=== PATIENT | female | born 1945 | race Caucasian/White ===

== ENCOUNTER 2019-09-27 15:30 | Inpatient (IN) | payer MEDICARE, OTHER ==
[~2019-09-27] VITALS: Ht 160 cm; Wt 69.9 kg
[~2019-09-27 15:30] MED LIST: BACL20TA PO; CELE200C PO; HYDR1TAB10 PO; LISI40TA PO; ONDA8TAB12 PO; PRED-220 PO; RALO60TA PO; TRAM50TA PO; VERA240C2 PO; citracal PO; fish oil PO; vitamin d PO
[2019-09-27] MEDS ORDERED: IV NORMAL SALINE 1,000ML 1,000 ML IV SCH (15:47)
--- NOTE | 2019-09-27 15:56 | PHYS DOC ---
Past History Past Medical History: Hypertension, Other Additional Past Medical Histor: MS; osteoporosis Past Surgical History: No Surgical History Alcohol Use: None Drug Use: None Adult General Chief Complaint Chief Complaint: WEAKNESS/GENERALIZED HPI HPI Patient is a 73-year-old female who presents with complaint of generalized weakness and bilateral leg pain. Patient states that she has history of MS and last saw her neurologist about 2 weeks ago. She states that at that time he had prescribed a steroid and states that steroids have significantly improved sy mptoms. She states that she finished a steroid about a week ago and has been progressively having worsening of symptoms for since. She denies any chest pain or shortness of breath. Her main complaint is just generalized weakness.[] Review of Systems Review of Systems Constitutional: Denies fever or chills [] Respiratory: Denies cough or shortness of breath [] Cardiovascular: No additional information not addressed in HPI [] GI: Denies abdominal pain, nausea, vomiting or diarrhea [] Integument: Denies rash or skin lesions [] Neurologic: Denies headache. Complains of generalized weakness [] All other systems were reviewed and found to be within normal limits, except as documented in this note. Current Medications Current Medications Current Medications Medications (Trade) Dose Ordered Sig/Khushboo Start Time Stop Time Status Last Admin Dose Admin Sodium Chloride 1,000 ml @ 1,000 mls/hr Q1H 09/27/19 15:47 09/27/19 16:46 Allergies Allergies Allergies Coded Allergies Type Severity Reaction Last Updated Verified No Known Drug Allergies 09/27/19 No Physical Exam Physical Exam Constitutional: Well developed, well nourished, no acute distress, non-toxic appearance. [] HENT: Normocephalic, atraumatic, bilateral external ears normal, oropharynx moist, no oral exudates, nose normal. [] Eyes: PERRLA, EOMI, conjunctiva normal, no discharge. [] Neck: Normal range of motion, no tenderness, supple, no stridor. [] Cardiovascular: Regular rate and rhythm[] Lungs & Thorax: Bilateral breath sounds clear to auscultation [] Abdomen: Bowel sounds normal, soft, no tenderness. [] Skin: Warm, dry, no erythema, no rash. [] Extremities: No tenderness, no cyanosis, no clubbing, ROM intact. [] Neurologic: Alert and oriented X 3, no focal deficits noted. [] Current Patient Data Vital Signs Vital Signs Date Time Temp Pulse Resp B/P (MAP) Pulse Ox O2 Delivery O2 Flow Rate FiO2 09/27/19 15:33 98.5 93 11 151/90 (110) 93 Room Air EKG EKG [] Radiology/Procedures Radiology/Procedures [] Course & Med Decision Making Course & Med Decision Making Pertinent Labs and Imaging studies reviewed. (See chart for details) [] Dragon Disclaimer Dragon Disclaimer This electronic medical record was generated, in whole or in part, using a voice recognition dictation system. Departure Departure: Impression: Primary Impression: Exacerbation of multiple sclerosis Disposition: ADMITTED INPATIENT Admitting Physician: Neela Foley Condition: IMPROVED Referrals: PCP,UNKNOWN (PCP) DARRIUS HUNTER Jr. DO Sep 27, 2019 15:56
[2019-09-27 16:40] LABS: BASO # 0.1 x10^3/uL (0.0-0.2); BASO % 1 % (0-3); EOS # 0.1 x10^3/uL (0.0-0.7); EOS % 1 % (0-3); HEMOGLOBIN 13.9 g/dL (12.0-15.5); LYMPH # 1.2 x10^3/uL (1.0-4.8); LYMPH % 19 % (24-48); MEAN CORPUSCULAR HEMOGLOBIN 30 pg (25-35); MEAN CORPUSCULAR HGB CONC 32 g/dL (31-37); MEAN CORPUSCULAR VOLUME 91 fL (79-100); MONO # 0.5 x10^3/uL (0.0-1.1); MONO % 8 % (0-9); NEUT # 4.4 x10^3uL (1.8-7.7); NEUT % 70 % (31-73); PLATELET COUNT 287 x10^3/uL (140-400); RED BLOOD COUNT 4.72 x10^6/uL (3.50-5.40); WHITE BLOOD COUNT 6.2 x10^3/uL (4.0-11.0)
[2019-09-27 17:02] LABS: COLOR,URINE YELLOW
[2019-09-27 17:03] LABS: AMORPHOUS SEDIMENT,UR PRESENT /HPF; BACTERIA,URINE 0 /HPF (0-FEW); BILIRUBIN,URINE NEG (NEG); CLARITY,URINE CLOUDY; GLUCOSE,URINE NEG (NEG); NITRITE,URINE NEG (NEG); RBC,URINE OCC /HPF (0-2); SQUAMOUS EPITHELIAL CELL,UR OCC /LPF; UROBILINOGEN,URINE 0.2 mg/dL (0.2 mg/dL); WBC,URINE OCC /HPF (0-4)
[2019-09-27 17:18] LABS: CALCIUM 8.7 mg/dL (8.5-10.1); CREATININE 0.6 mg/dL (0.6-1.0); DIRECT BILIRUBIN 0.1 mg/dL (0.0-0.2); GFR 98.5; MAGNESIUM 1.7 mg/dL (1.8-2.4); POTASSIUM 3.9 mmol/L (3.5-5.1); TOTAL BILIRUBIN 0.3 mg/dL (0.2-1.0)
[2019-09-27] MEDS ORDERED: MORPHINE SULFATE 2 MG/ML DISP.SYRIN. IV PRN (18:30)
[2019-09-27] MEDS ORDERED: methylPREDNISolone SOD SUCC PF 125 MG/2 ML VIAL. IV ONE (18:30)
[2019-09-27] MEDS ORDERED: ONDANSETRON PF 4 MG/2 ML VIAL. IV PRN (18:30)
[2019-09-27] MEDS ORDERED: BACLOFEN 20 MG TABLET PO STA (18:57)
[2019-09-27 21:58] VITALS: BP 135/79
[2019-09-27 23:17] VITALS: BP 143/80
[2019-09-28 06:09] LABS: CALCIUM 8.6 mg/dL (8.5-10.1); CREATININE 0.7 mg/dL (0.6-1.0); GFR 82.5; POTASSIUM 4.1 mmol/L (3.5-5.1)
[2019-09-28 06:40] VITALS: BP 161/76
[2019-09-28 06:51] LABS: BASO % 0 % (0-3); EOS % 0 % (0-3); HEMATOCRIT 40.6 % (36.0-47.0); HEMOGLOBIN 13.2 g/dL (12.0-15.5); LYMPH # 0.6 x10^3/uL (1.0-4.8); LYMPH % 12 % (24-48); MEAN CORPUSCULAR HEMOGLOBIN 29 pg (25-35); MEAN CORPUSCULAR HGB CONC 33 g/dL (31-37); MEAN CORPUSCULAR VOLUME 90 fL (79-100); MONO # 0.1 x10^3/uL (0.0-1.1); MONO % 1 % (0-9); NEUT # 4.6 x10^3uL (1.8-7.7); NEUT % 87 % (31-73); PLATELET COUNT 265 x10^3/uL (140-400); RED BLOOD COUNT 4.51 x10^6/uL (3.50-5.40); WHITE BLOOD COUNT 5.3 x10^3/uL (4.0-11.0)
[2019-09-28] MEDS: RALOXIFENE 60 MG TABLET. PO SCH (09:00)
[2019-09-28] MEDS: predniSONE 10 MG TABLET PO SCH (09:15)
[2019-09-28] MEDS: OMEGA-3 FATTY ACIDS/FISH OIL 1,000 MG CAPSULE. PO SCH (09:15)
[2019-09-28] MEDS: CHOLECALCIFEROL (VITAMIN D3) 1,000 UNIT TABLET PO SCH (09:15)
[2019-09-28] MEDS: VERAPAMIL SR 120 MG TABLET.ER. PO SCH (09:16)
[2019-09-28] MEDS: BACLOFEN 20 MG TABLET PO SCH ×4 (09:16→21:30)
[2019-09-28] MEDS: LISINOPRIL 20 MG TABLET PO SCH (09:16)
[2019-09-28] MEDS: CELECOXIB 100 MG CAPSULE PO SCH (09:16)
[2019-09-28] MEDS: traMADol 50 MG TABLET PO PRN ×2 (09:17→18:30)
[2019-09-28] MEDS: CALCIUM CARBONATE 500 MG TABLET PO SCH (09:24)
[2019-09-28 11:00] VITALS: BP 151/82
[2019-09-28 15:00] VITALS: BP 158/78
--- NOTE | 2019-09-28 15:41 | HP ---
ADMIT DATE: 09/27/2019 HISTORY OF PRESENT ILLNESS: The patient is a 73-year-old female patient who came to the Emergency Room complaining of generalized weakness and bilateral leg pain. She apparently has had multiple sclerosis for more than 25 years and follows, so she saw her neurologist about 2 weeks ago and was prescribed a tapering course of steroids that has significantly improved her symptoms. She stated that she finished steroid about a week ago, has been progressively having worsening of symptoms, she is now unable to walk, unable to control her urine. Her weakness is actually worse in her right side. She denied any chest pain or shortness of breath. She was admitted to consult the neurologist. PAST MEDICAL HISTORY: Significant for hypertension, hypothyroidism, osteoporosis, osteoarthritis. PAST SURGICAL HISTORY: Significant for vertebroplasty x 2. ALLERGIES: She has no known drug allergies. MEDICATIONS: She is currently on baclofen 20 mg 4 times a day, verapamil 240 mg once a day, lisinopril 40 mg daily, Celebrex 200 mg 2 capsules once a day, tramadol 100 mg as needed every 6 hours, prednisone 10 mg daily, raloxifene for Evista 60 mg once a day, Citracal 1 tablet daily, omega-3 fatty acid 1 capsule once a day and vitamin D 5000 international units once a day. FAMILY HISTORY: She has one sister who has morbid obesity, treated with gastric bypass surgery. One brother, younger and has diabetes. Her father at age of 74 because of myocardial infarction and complication of diabetes. Her mother at age of 86 because of Marii's granulomatosis. SOCIAL HISTORY: She is , has 2 daughters. She never smoked, does not drink alcohol or use any recreational drugs. She worked at [employer] for almost 38 years. REVIEW OF SYSTEMS: The patient denied any blurring of vision, cataract, glaucoma or macular degeneration. Denied any earache, tinnitus or sensorineural deafness. Denied any nosebleeds, stuffy nose or postnasal drip. Denied any sore throat, sore tongue, toothache, hoarseness of voice or difficulty swallowing. Denied any nausea, vomiting, diarrhea or constipation. Denied any hematemesis, melena or hematochezia. Did complain of dysuria, but denied any frequency or hematuria. Denied any chest pain or shortness of breath, cough, phlegm or hemoptysis. PHYSICAL EXAMINATION: GENERAL: On arrival to the Emergency Room, she looked well and was clearly in no apparent respiratory distress. No pallor, jaundice, cyanosis or thyromegaly. No jugular venous distention, but bilateral lower limb edema. VITAL SIGNS: Her heart rate was 79, blood pressure was 161/76, temperature was 98.2, respiratory rate was 18 and oxygen saturation was 93%. HEAD, EYES, EARS, NOSE AND THROAT: Shows normocephalic, atraumatic. NECK: Supple. CARDIAC: Normal first and second heart sounds with no gallop or murmur. CHEST: Clear to auscultation. No crepitation or rhonchi. ABDOMEN: Distended, soft, nontender. NEUROLOGIC: She is awake, alert, responding appropriately. All cranial nerves intact. She moves her upper extremities much more readily than her lower extremities. She does have weakness, more on the right side and she has what seems to be foot drops in both sides EXTREMITIES: Examination of the lower extremities showed no clubbing or cyanosis, but marked bilateral lower limb edema. LABORATORY DATA: Her lab work on arrival showed a white cell count of 6200, hemoglobin 14, hematocrit 43, MCV 91, and platelet count 287,000. Serum sodium was 142, potassium 3.9, chloride 106, bicarbonate 31, anion gap of 5, BUN 16, creatinine 0.6, estimated GFR was 98 mL per minute. Her glucose was 93, calcium was 8.7, magnesium was 1.7. Her total bilirubin, AST, ALT, alkaline phosphatase were normal. Total protein was 6, albumin 3. Her urinalysis essentially unremarkable. In particular, the urine was negative for nitrite, leukocyte esterase, no rbc's, no wbc's, and no bacteria. ASSESSMENT AND PLAN: In summary, this is a 73-year-old who was admitted with multiple sclerosis exacerbation. Other medical problems include hypertension, osteoporosis. Plan is to continue with all her current medication. Consult Dr. Pittman. Her legs are markedly swollen and given her poor mobility, obviously DVT is clinically likely. I will arrange for her to have venous Doppler ultrasound to exclude that possibility. GILBERTO RENTERIA MD DR: MORENA/rhiannon JOB#: [id number] / [id number]
[2019-09-28] MEDS: ENOXAPARIN 40 MG/0.4 ML SYRINGE. SQ SCH (16:58)
--- NOTE | 2019-09-28 17:54 | RAD ---
EXAM: Bilateral lower extremity venous Doppler. HISTORY: Bilateral lower extremity pain/swelling. COMPARISON: None. FINDINGS: Grayscale and Doppler analysis of the both lower extremity deep venous systems was performed with graded compression and augmentation. The common femoral, greater saphenous, superficial femoral, popliteal and calf veins were assessed. There is no evidence of deep venous thrombosis. Subcutaneous edema is noted distally bilaterally. IMPRESSION: 1. No evidence of deep venous thrombosis. Electronically signed by: Liana Toth MD (09/28/2019 5:51 PM) [id number]
[2019-09-28 18:44] VITALS: BP 144/80
[2019-09-28] MEDS ORDERED: LEVO50TA5 PO (19:02)
--- NOTE | 2019-09-28 21:07 | PN ---
DATE: 09/28/2019 SUBJECTIVE: The patient is resting, slightly propped up in bed, in no apparent distress. She continued to complain of weakness and inability to walk. According to her, she was able to get out of the bed and walk with a walker without difficulty and since she stopped her steroids, her weakness has just progressed. PHYSICAL EXAMINATION: GENERAL: When I saw her today, she looked pale, but no jaundice, cyanosis or thyromegaly. No jugular venous distention. No limb edema. VITAL SIGNS: Her heart rate was 121, blood pressure was 151/82, temperature was 98.1, respiratory rate 20, and oxygen saturation was 93%. HEAD, EYES, EARS, NOSE AND THROAT: Showed normocephalic, atraumatic. NECK: Supple. HEART: Normal first and second heart sounds. No gallop or murmur. CHEST: Clear to auscultation. No crepitation or rhonchi. ABDOMEN: Distended, soft, nontender. NEUROLOGIC: She is awake, alert, responding appropriately. All cranial nerves intact. She moves upper extremities without difficulty. She has marked weakness of both lower extremities, more so on the right than left. ASSESSMENT: Multiple sclerosis exacerbation, hypothyroidism, hypertension, osteoporosis. PLAN: To await the Neurology consult. I would start her on Lovenox for DVT prophylaxis, we will arrange for her to have given markedly swollen lower extremities and her poor mobility. I will also order venous Doppler ultrasound. GILBERTO RENTERIA MD DR: MORENA/rhiannon JOB#: [id number] / [id number]
[2019-09-29 05:29] VITALS: BP 143/82
[2019-09-29 06:56] LABS: CALCIUM 8.3 mg/dL (8.5-10.1); CREATININE 0.6 mg/dL (0.6-1.0); GFR 98.5; MAGNESIUM 1.9 mg/dL (1.8-2.4)
[2019-09-29] MEDS: ENOXAPARIN 40 MG/0.4 ML SYRINGE. SQ SCH (08:08)
[2019-09-29] MEDS: RALOXIFENE 60 MG TABLET. PO SCH (08:08)
[2019-09-29] MEDS: OMEGA-3 FATTY ACIDS/FISH OIL 1,000 MG CAPSULE. PO SCH (08:08)
[2019-09-29] MEDS: LISINOPRIL 20 MG TABLET PO SCH (08:08)
[2019-09-29] MEDS: VERAPAMIL SR 120 MG TABLET.ER. PO SCH (08:09)
[2019-09-29] MEDS: CELECOXIB 100 MG CAPSULE PO SCH (08:09)
[2019-09-29] MEDS: CALCIUM CARBONATE 500 MG TABLET PO SCH (08:09)
[2019-09-29] MEDS: BACLOFEN 20 MG TABLET PO SCH ×4 (08:09→20:25)
[2019-09-29] MEDS: traMADol 50 MG TABLET PO PRN (08:09)
[2019-09-29] MEDS: predniSONE 10 MG TABLET PO SCH (08:10)
[2019-09-29] MEDS: CHOLECALCIFEROL (VITAMIN D3) 1,000 UNIT TABLET PO SCH (08:11)
--- NOTE | 2019-09-29 12:54 | CONS ---
DATE OF CONSULTATION: 09/28/2019 REFERRING PHYSICIAN: Dr. Foley. REASON FOR CONSULTATION: Generalized weakness and low back pain. 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 I have seen the patient on a regular basis and she complains of generalized weakness and possible MS flareup. She was started on a tapering dose of prednisone several weeks ago. The last dose was approximately 7-9 days ago. The patient reported some improvement of her weakness. However, a week later, she started having generalized weakness and worsening of her chronic lower back pain. She denies any head injuries or fall. The patient states she still has intermittent urinary incontinence. She denies chest pain, shortness of breath or palpitation, dysarthria, dysphagia, or vertigo. PAST MEDICAL HISTORY: Significant for multiple sclerosis as described above, hypertension, hypothyroidism, osteoporosis and osteoarthritis. PAST SURGICAL HISTORY: Significant for vertebroplasty times 2. CURRENT HOME MEDICATIONS: Baclofen 20 mg 4 times daily, verapamil 240 mg daily, Evista 60 mg once daily, prednisone 10 mg daily, lisinopril 40 mg daily, Celebrex 200 mg 2 capsules daily and tramadol 100 mg p.r.n., vitamin D 5000 units daily and fish oil 1 tablet daily. ALLERGIES: No known drug allergies. REVIEW OF SYSTEMS: A 10-point review of systems was performed as mentioned above in history of present illness. PHYSICAL EXAMINATION: GENERAL: Well-developed, well-nourished female, not in acute distress. She weighs 69.9 kilos. VITAL SIGNS: Blood pressure 158/78, respiratory rate 18, pulse is 73, temperature 98.6, oxygen saturation 93% on room air. HEENT: Normocephalic, atraumatic, otherwise unremarkable. NECK: Supple. Negative for carotid bruit, lymphadenopathy or thyromegaly. LUNGS: Clear to A and P. CARDIOVASCULAR: Regular rate and rhythm, normal S1, S2. There is no S3, S4 or murmur. ABDOMEN: Soft. Bowel sounds positive. EXTREMITIES: Negative for cyanosis, clubbing. Positive for mild pitting edema, more prominent on the right side, probably due to morbidities secondary to MS. NEUROLOGICAL EXAM: Mental status: The patient is alert and oriented times 3. Speech is fluent. There is no language dysfunction. Memory, judgment, and abstracting thinking are normal. The patient denies hallucination or delusion. Cranial nerves: Visual wall are full. The pupils are reactive to light and accommodation. The extraocular movements are intact. There is no nystagmus. There is no facial motor or sensory deficit. Hearing is intact bilaterally. The palate is elevated symmetrically. Sternocleidomastoid muscles are powerful bilaterally. The patient shrugs her shoulders symmetrically, protrudes her tongue in the midline without fasciculation or atrophy. Motor: No focal muscle bulk was seen. The tone is normal. The strength is 4/5 in the upper extremities and 3/5 in the right lower extremity and 4/5 in the left lower extremity. Deep tendon reflexes were symmetric and hypoactive. Gait not tested at this time. The patient uses a walker for ambulation, but she felt very weak today. DIAGNOSTIC DATA: Venous Doppler ultrasound of the lower extremities revealed no evidence of DVTs. LABORATORY DATA: CBC revealed white blood cells of 5.3 thousand, hemoglobin 13.2, hematocrit 40.6, platelet count 265,000. Chemistry revealed sodium of 141, potassium 4.1, chloride 106, CO2 of 26, BUN 19, creatinine 0.7, glucose 165 and calcium 8.6. Urinalysis negative for urinary tract infections. IMPRESSION: 1. Generalized weakness, more prominent in the lower extremities, unchanged from previous examination. 2. Primary progressive multiple sclerosis resulted in severe balance and difficulty to walk without assistance, urinary incontinence. 3. Multiple medical problems include chronic low back pain due to previous vertebral fracture required vertebroplasty, hypertension, osteoporosis and osteoarthritis, hypothyroidism. RECOMMENDATIONS: 1. We will continue with current management initiated by Dr. Foley. 2. Check a TSH. 3. Physical therapy evaluation. 4. Continue with current home medications. I do not think this patient needs another course of steroids as the patient has been finishing a 2 course of tapering dose of prednisone. M Reji ALBARRAN MD DR: ROYA/rhiannon JOB#: [id number] / [id number]
--- NOTE | 2019-09-29 13:03 | PN ---
DATE: SUBJECTIVE: The patient denies any new medical or neurological complaints; however, she stated she feels better and stronger today. OBJECTIVE: GENERAL: Well-developed, well-nourished female, not in acute distress. VITAL SIGNS: Blood pressure 144/80, respiratory rate 20, pulse is 68, temperature 98.9, oxygen saturation 96% on room air. HEENT: Normocephalic, atraumatic, otherwise unremarkable. NECK: Supple. Negative for carotid bruit, lymphadenopathy or thyromegaly. LUNGS: Clear to A and P. CARDIOVASCULAR: Regular rhythm, normal S1, S2. There is no S3, S4 or murmur. ABDOMEN: Soft. Bowel sounds positive. EXTREMITIES: Negative for cyanosis or clubbing, but positive for mild pitting edema, more prominent on the left lower extremity. LABORATORY DATA: Chemistry revealed sodium of 142, potassium 4, chloride 107, CO2 of 26, BUN 21, creatinine 0.6, glucose 88, calcium 8.3, TSH is high at 3.59. IMPRESSION: 1. Generalized weakness with multiple medical problems including a primary progressive multiple sclerosis, may have elevated TSH and hypothyroidism may have contributed to the current symptoms of weakness. 2. Multiple medical problems include hypertension, osteoarthritis and osteoporosis. RECOMMENDATIONS: The patient may benefit from adding levothyroxine and we will start physical therapy evaluation tomorrow. M Reji ALBARRAN MD DR: ROYA/rhiannon JOB#: [id number] / [id number]
--- NOTE | 2019-09-29 15:20 | PN ---
DATE: 09/29/2019 SUBJECTIVE: The patient is sitting comfortably in her chair, in no apparent distress. She is feeling slightly better today. She has been up and about with a walker with standby assist. She continues to be concerned about her swollen leg, although we did do venous Doppler ultrasound yesterday and showed that there is no evidence of deep vein thrombosis, subcutaneous edema is more noted distally bilaterally. PHYSICAL EXAMINATION: GENERAL: When I examined her today, she looked well and was clearly in no apparent respiratory distress. No pallor, jaundice, cyanosis or thyromegaly. No jugular venous distention or ____ edema. VITAL SIGNS: Her heart rate was 55, blood pressure 143/82, temperature was 97.9, respiratory rate was 18 and oxygen saturation was 95%. HEAD, EYES, EARS, NOSE AND THROAT: Showed normocephalic, atraumatic. NECK: Supple. HEART: Showed normal first and second heart sounds. No gallop or murmur. CHEST: Clear to auscultation. No crepitation or rhonchi. ABDOMEN: Distended, soft, nontender. NEUROLOGIC: She was awake, alert, responding appropriately. All cranial nerves intact. She moves extremities without difficulty. She ambulates with a walker. EXTREMITIES: Both lower extremities showed some mild bilateral lower limb edema and skin dryness, but there is no clubbing or cyanosis. LABORATORY DATA: Her most recent lab work showed that her TSH was slightly elevated. Her serum albumin was 3 g/dL. ASSESSMENT: 1. Multiple sclerosis exacerbation. 2. Hypothyroidism. 3. Hypertension. 4. Osteoporosis with multiple compression fractures, status post vertebroplasty. PLAN: Obviously to continue with physical and occupational therapy. We will be discharge to swing bed tomorrow. I will also check her T3, T4, free T4, and decide on further management accordingly. GILBERTO RENTERIA MD DR: MORENA/rhiannon JOB#: [id number] / [id number]
[2019-09-29 20:00] VITALS: BP 146/78
[2019-09-30 05:28] VITALS: BP 153/78
[2019-09-30 06:15] LABS: ALBUMIN 2.9 g/dL (3.4-5.0); CALCIUM 8.7 mg/dL (8.5-10.1); CREATININE 0.6 mg/dL (0.6-1.0); GFR 98.5; POTASSIUM 3.7 mmol/L (3.5-5.1); TOTAL BILIRUBIN 0.3 mg/dL (0.2-1.0); TOTAL PROTEIN 5.9 g/dL (6.4-8.2)
[2019-09-30] MEDS: CHOLECALCIFEROL (VITAMIN D3) 1,000 UNIT TABLET PO SCH (08:23)
[2019-09-30] MEDS: CALCIUM CARBONATE 500 MG TABLET PO SCH (08:23)
[2019-09-30] MEDS: predniSONE 10 MG TABLET PO SCH (08:24)
[2019-09-30] MEDS: LISINOPRIL 20 MG TABLET PO SCH (08:24)
[2019-09-30] MEDS: OMEGA-3 FATTY ACIDS/FISH OIL 1,000 MG CAPSULE. PO SCH (08:24)
[2019-09-30] MEDS: RALOXIFENE 60 MG TABLET. PO SCH (08:25)
[2019-09-30] MEDS: BACLOFEN 20 MG TABLET PO SCH ×2 (08:25→13:29)
[2019-09-30] MEDS: CELECOXIB 100 MG CAPSULE PO SCH (08:25)
[2019-09-30] MEDS: VERAPAMIL SR 120 MG TABLET.ER. PO SCH (08:26)
[2019-09-30] MEDS: ENOXAPARIN 40 MG/0.4 ML SYRINGE. SQ SCH (08:27)
[2019-09-30] MEDS ORDERED: CELECOXIB 100 MG CAPSULE PO SCH (09:00)
[2019-09-30 11:29] VITALS: BP 158/98
[2019-09-30] MEDS ORDERED: CALCIUM CARBONATE 500 MG TAB.CHEW PO PRN (13:45)
--- NOTE | 2019-09-30 20:41 | DS ---
DATE OF DISCHARGE: 09/30/2019 DISCHARGE-TRANSFER SUMMARY HOSPITAL COURSE: The patient is a 73-year-old female patient with longstanding history of multiple sclerosis, who was admitted with exacerbation of her multiple sclerosis. She was seen by Dr. Pittman and she finished 2-week course of tapering steroids and came complaining of marked weakness and difficulty walking and unable to control her urine. She was seen in consultation by Dr. Pittman, who did not recommend anymore steroids, but he recommended physical therapy and therefore, we will discharge her to swing bed to continue the process of rehabilitation. PHYSICAL EXAMINATION: GENERAL: When I saw her today, she looked well and was clearly in no apparent respiratory distress. No pallor, jaundice, cyanosis, or thyromegaly. No jugular venous distension. Mild bilateral lower limb edema. VITAL SIGNS: Her heart rate was 83, blood pressure was 158/98, temperature was 98.1, respiratory rate was 20, and oxygen saturation was 93% on room air. HEAD, EYES, EARS, NOSE AND THROAT: Showed normocephalic, atraumatic. NECK: Supple. HEART: Showed normal first and second heart sounds. No gallop or murmur. CHEST: Clear to auscultation. No crepitation or rhonchi. ABDOMEN: Distended, soft, nontender. NEUROLOGICAL: She was awake, alert, responding appropriately. All cranial nerves intact. She moves upper extremities to much good extent than lower extremities. She is able to walk with a walker. Her weakness is more on the ____. Her intake was 500, no output was recorded. LABORATORY DATA: Her lab work as of this morning showed a serum sodium of 144, potassium 3.7, chloride 107, bicarbonate 30, anion gap of 7, BUN 19, creatinine 0.6, estimated GFR was 98 mL per minute. Her glucose was 97, calcium was 8.7. Total bilirubin, AST, ALT, alkaline phosphatase were normal. Her total protein was 5.9, albumin was 2.9. Her white cell count was 5300, hemoglobin 13, hematocrit 40, MCV 90 and platelet count of 265,000. DISCHARGE MEDICATIONS: She was discharged to swing bed to continue on baclofen 20 mg 4 times a day, Celebrex 400 mg once a day, Citracal 1 tablet once a day, fish oil 1 capsule once a day, levothyroxine sodium 50 mcg once a day, lisinopril 40 mg daily, prednisone 10 mg daily, raloxifene (Evista) 60 mg once a day, tramadol 100 mg every 6 hours, verapamil 240 mg once a day, vitamin D 5000 international units once a day. FINAL DISCHARGE DIAGNOSES: Multiple sclerosis exacerbation. Other problems include hypertension, hypothyroidism, osteoporosis, osteoarthritis. GILBERTO RENTERIA MD DR: MORENA/rhiannon JOB#: [id number] / [id number]
[2019-10-01] MEDS ORDERED: CHOL500062 PO (03:07)
[2019-10-01] MEDS ORDERED: CALC500T31 PO (03:07)
[2019-10-01] MEDS ORDERED: OMEG-33 PO (03:07)
== END 2019-09-30 14:58 | disposition swing bed (61) | DRG 59 ==
LOC: ER 15:30 → 1 SOUTH 18:27
PROVIDERS: ADMIT Internal Medicine; ATTEND Internal Medicine
DX: G35 Multiple sclerosis (principal); E44.0 Moderate protein-calorie malnutrition; E03.9 Hypothyroidism, unspecified; G89.29 Other chronic pain; I10 Essential (primary) hypertension; M19.90 Unspecified osteoarthritis, unspecified site; M81.0 Age-related osteoporosis without current pathological fracture; N31.9 Neuromuscular dysfunction of bladder, unspecified; Z82.49 Family history of ischemic heart disease and other diseases of the circulatory system; Z83.3 Family history of diabetes mellitus; Z87.81 Personal history of (healed) traumatic fracture; Z79.899 Other long term (current) drug therapy; Z68.27 Body mass index [BMI] 27.0-27.9, adult
CPT/HCPCS: 36415; 80048; 80053; 80076; 81001; 82550; 83735; 84436; 84439; 84443; 84480; 85025; 93970; 96361; 96374; J1650; J2270; J2930; J7512; 97530; 97535; 99285-25; J7030

== ENCOUNTER 2019-09-30 15:07 | Inpatient (IN) | payer MEDICARE, OTHER ==
[~2019-09-30] VITALS: Ht 160 cm; Wt 64.1 kg
[~2019-09-30 15:07] MED LIST changes: +LEVO50TA5 PO
[2019-09-30 15:14] VITALS: BP 155/83
[2019-09-30] MEDS ORDERED: traMADol 50 MG TABLET PO SCH (15:30)
--- NOTE | 2019-09-30 15:58 | NUR ---
NURSING NOTE ADMIT PT ADMITTED [facility] FOR PT AND OT EVALUATION AND TREATMENT. SEE COMPLETED ASSESSMENT PER FLOW SHEET. NO BEHAVIORS NOTED THIS SHIFT. PAIN: PT DENIES PAIN BUT DOES HAVE CHRONIC PAIN OFF AND ON. PT HAS PRN PAIN MEDICATIONS IF NEEDED. RESPIRATORY: PT IS ON ROOM AIR. SKIN: PT HAS EDEMA/SWELLING TO BLE 2+ AND DRY FLAKY SKIN. ADL FUNCTIONAL STATUS: REQUIRES X2 ASSIST AND SIT TO STAND AT THIS TIME. EXTENSIVE ASSISTANCE WITH ALMOST ALL ADL'S AT THIS TIME. PT WAS WALKING WITH A WALKER AT HOME. PT/OT NOTIFIED OF ORDERS. DENISE SNIDER.
--- NOTE | 2019-09-30 16:37 | NUR ---
NURSING NOTE PT COMPLAINS OF LOWER ABDOMEN PRESSURE AND URINE FREQUENCY. DR RENTERIA NOTIFIED. REPEAT UA ORDER OBTAINED. DENISE SNIDER.
[2019-09-30] MEDS: BACLOFEN 20 MG TABLET PO SCH ×2 (16:46→20:51)
[2019-09-30 18:12] VITALS: BP 137/92
[2019-09-30 19:55] LABS: AMORPHOUS SEDIMENT,UR PRESENT /HPF; BACTERIA,URINE 0 /HPF (0-FEW); BILIRUBIN,URINE NEG (NEG); CLARITY,URINE CLOUDY; COLOR,URINE YELLOW; GLUCOSE,URINE 250 mg/dL (NEG); NITRITE,URINE NEG (NEG); RBC,URINE RARE /HPF (0-2); SQUAMOUS EPITHELIAL CELL,UR OCC /LPF; UROBILINOGEN,URINE 0.2 mg/dL (0.2 mg/dL); WBC,URINE RARE /HPF (0-4)
[2019-09-30] MEDS ORDERED: VERAPAMIL SR 120 MG TABLET.ER. PO SCH (21:00)
[2019-09-30] MEDS: traMADol 50 MG TABLET PO PRN (21:01)
--- NOTE | 2019-10-01 02:38 | NUR ---
Swing Bed Nursing Note Patient Handbook for [facility]ter given to patient. Nursing Problem: PT/OT strengthening, post MS flare up Cognitive/Behavioral: Pt alert and oriented x4. Pt pleasant and interactive with staff. Pain: Pt report pain to lower back, PRN Tramadol given as ordered Respiratory Status: Room Air, Clear Skin: Redness and edema to lower legs - Lower Ext US negative for DVT Bowel/Bladder Continence: Pt use bedside commode x2 assist and brief in place due to stress incontinence. ADL Functional Status: Requires x2 assist, with transfers. Pt has had to use sit to stand lift on previous shift. At this time pt requires extensive help with ADLs. Pt normally use a walker at home.
[2019-10-01] MEDS ORDERED: OMEG-33 PO (03:07)
[2019-10-01] MEDS ORDERED: CALC500T31 PO (03:07)
[2019-10-01] MEDS ORDERED: CHOL500062 PO (03:07)
[2019-10-01 05:14] VITALS: BP 127/80
[2019-10-01] MEDS: LEVOTHYROXINE 50 MCG TABLET PO SCH (06:00)
[2019-10-01] MEDS ORDERED: LEVOTHYROXINE 50 MCG TABLET PO SCH ×2 (06:00→07:30)
[2019-10-01] MEDS: BACLOFEN 20 MG TABLET PO SCH ×4 (08:22→20:42)
[2019-10-01] MEDS: LISINOPRIL 20 MG TABLET PO SCH (08:22)
[2019-10-01] MEDS: CALCIUM CARBONATE 500 MG TABLET PO SCH (08:22)
[2019-10-01] MEDS: OMEGA-3 FATTY ACIDS/FISH OIL 1,000 MG CAPSULE. PO SCH (08:22)
[2019-10-01] MEDS: CHOLECALCIFEROL (VITAMIN D3) 1,000 UNIT TABLET PO SCH (08:23)
[2019-10-01] MEDS: ENOXAPARIN 40 MG/0.4 ML SYRINGE. SQ SCH (08:23)
[2019-10-01] MEDS: predniSONE 10 MG TABLET PO SCH (08:23)
[2019-10-01] MEDS: CELECOXIB 100 MG CAPSULE PO SCH ×2 (08:23→20:42)
[2019-10-01] MEDS: RALOXIFENE 60 MG TABLET. PO SCH (08:25)
[2019-10-01] MEDS: VERAPAMIL SR 120 MG TABLET.ER. PO SCH (08:28)
[2019-10-01] MEDS ORDERED: NON FORMULARY ITEM (Lisinopril 1 TAB) PO SCH (09:00)
[2019-10-01] MEDS ORDERED: CELECOXIB 100 MG CAPSULE PO SCH (09:00)
[2019-10-01] MEDS ORDERED: FISH OIL PO SCH (09:00)
[2019-10-01] MEDS ORDERED: VERAPAMIL HCL PO SCH (09:00)
[2019-10-01] MEDS ORDERED: INTLU PO SCH (09:00)
[2019-10-01] MEDS ORDERED: CITRACAL PO SCH (09:00)
[2019-10-01] MEDS ORDERED: VERAPAMIL SR 120 MG TABLET.ER. PO SCH (09:00)
[2019-10-01] MEDS ORDERED: CELECOXIB PO SCH (09:00)
--- NOTE | 2019-10-01 14:42 | NUR ---
SWING BED DOCUMENTATION PATIENT HANDBOOK FOR [facility] GIVEN TO PATIENT. PT HERE FOR PT/OT STRENGTHENING POST MS FLARE UP ADMISSION. PT IS A&O X4. PT IS CALM, COOPERATIVE, AND COMPLIANT WITH ALL CARES. PT INTERACTED WELL WITH OTHER PATIENTS AT THE DINNING ROOM FOR MEALS. PT DENIES ANY PAIN THUS FAR BUT USES PRN TRAMADOL NEEDED FOR PAIN IN HER LEGS AND LOWER BACK. PT IS ON ROOM AIR AND LUNG SOUNDS ARE CLEAR. NO COUGH NOTED. PT HAS EDEMA AND REDNESS IN BILATERAL LOWER LEGS. PT EDUCATED ABOUT ELEVATING HER LEGS WHEN AT REST. PT IS X2 ASSIST TO BEDSIDE COMMODE WITH OCCASIONAL STRESS INCONTINENCE. PT REQUIRES X2 ASSIST WITH TRANSFERS OUT OF BED AND OUT OF CHAIR. PT IS ABLE TO STAND OKAY WITH HER SHOES ON AND IS A X1 ASSIST WHEN UP IN WHEELCHAIR TO BEDSIDE COMMODE. OTHERWISE, PT REQUIRES EXTENSIVE HELP WITH ADL'S. PT IS INDEPENDENT WHEN EATING HER MEALS. PT IS NOT ABLE TO WIPE HERSELF OR CLEAN UP AFTER USING THE RESTROOM. SHE IS NOT ABLE TO PUT HER OWN SHOES ON OR LIFT HER LEGS UP TO PUT ON BRIEF OR PANTS. WILL CONTINUE TO MONITOR. DENISE SNIDER.
[2019-10-01 18:30] VITALS: BP 150/92
--- NOTE | 2019-10-01 21:39 | NUR ---
wing Bed Nursing Note Patient Handbook for [facility] given to patient. Nursing Problem: PT/OT strengthening, post MS flare up Cognitive/Behavioral: Pt resting in bed on assessment, reports having a great visit with her daughter this evening. Pt alert and oriented x4. Pt pleasant and interactive with staff. Pain: Pt denies pain at this time. Respiratory Status: Room Air, Clear Skin: Redness and edema to lower legs - Lower Ext US negative for DVT Bowel/Bladder Continence: Pt use bedside commode x2 assist and brief in place due to stress incontinence. ADL Functional Status: Requires x2 assist, with transfers. Pt has had to use sit to stand lift on previous shift. At this time pt requires extensive help with ADLs. Pt normally use a walker at home.
[2019-10-02] MEDS: LEVOTHYROXINE 50 MCG TABLET PO SCH (05:33)
[2019-10-02 05:53] VITALS: BP 160/80
[2019-10-02] MEDS: ENOXAPARIN 40 MG/0.4 ML SYRINGE. SQ SCH (08:40)
[2019-10-02] MEDS: predniSONE 10 MG TABLET PO SCH (08:40)
[2019-10-02] MEDS: BACLOFEN 20 MG TABLET PO SCH ×4 (08:40→21:36)
[2019-10-02] MEDS: CALCIUM CARBONATE 500 MG TABLET PO SCH (08:40)
[2019-10-02] MEDS: VERAPAMIL SR 120 MG TABLET.ER. PO SCH (08:40)
[2019-10-02] MEDS: OMEGA-3 FATTY ACIDS/FISH OIL 1,000 MG CAPSULE. PO SCH (08:41)
[2019-10-02] MEDS: RALOXIFENE 60 MG TABLET. PO SCH (08:41)
[2019-10-02] MEDS: CELECOXIB 100 MG CAPSULE PO SCH ×2 (08:41→21:36)
[2019-10-02] MEDS: CHOLECALCIFEROL (VITAMIN D3) 1,000 UNIT TABLET PO SCH (08:41)
[2019-10-02] MEDS: LISINOPRIL 20 MG TABLET PO SCH (08:41)
--- NOTE | 2019-10-02 10:35 | NUR ---
Swing Bed Nursing Note Patient Handbook for Shelter given to patient. Nursing Problem: PT/OT strengthening, post MS flare up Cognitive/Behavioral: Pt resting in chair on assessment, reports feeling a bit stronger today. Pt alert and oriented x4. Pt pleasant and interactive with staff; compliant with medications and assessments. Pain: Pt denies pain at this time. Respiratory Status: Room Air, Clear Skin: Redness and edema to lower legs - Lower Ext US negative for DVT. No wounds noted. Bowel/Bladder Continence: Pt use bedside commode x2 assist and brief in place due to stress incontinence. ADL Functional Status: Requires x2 assist, with transfers. Pt has had to use sit to stand lift on previous shifts. At this time pt requires extensive help with ADLs. Pt normally use a walker at home.
[2019-10-02 18:05] VITALS: BP 149/93
[2019-10-02] MEDS ORDERED: CETIRIZINE HCL 10 MG TABLET PO PRN (21:00)
--- NOTE | 2019-10-03 04:04 | NUR ---
wing Bed Nursing Note Patient Handbook for Detention given to patient. Nursing Problem: PT/OT strengthening, post MS flare up Cognitive/Behavioral: Pt resting in bed on assessment, reports having a great visit with her daughter this evening. Pt alert and oriented x4. Pt pleasant and interactive with staff. Pain: Pt denies pain at this time. Respiratory Status: Room Air, Clear Skin: Redness and edema to lower legs - Lower Ext US negative for DVT Bowel/Bladder Continence: Pt use bedside commode x2 assist and brief in place due to stress incontinence. ADL Functional Status: Requires x2 assist, with transfers. Pt has had to use sit to stand lift on previous shift. At this time pt requires extensive help with ADLs. Pt normally uses a walker at home.
[2019-10-03] MEDS: LEVOTHYROXINE 50 MCG TABLET PO SCH (05:26)
[2019-10-03] MEDS: traMADol 50 MG TABLET PO PRN (05:28)
[2019-10-03 06:21] VITALS: BP 132/79
[2019-10-03 08:53] VITALS: BP 126/75
[2019-10-03] MEDS: VERAPAMIL SR 120 MG TABLET.ER. PO SCH (08:54)
[2019-10-03] MEDS: OMEGA-3 FATTY ACIDS/FISH OIL 1,000 MG CAPSULE. PO SCH (08:55)
[2019-10-03] MEDS: RALOXIFENE 60 MG TABLET. PO SCH (08:55)
[2019-10-03] MEDS: CHOLECALCIFEROL (VITAMIN D3) 1,000 UNIT TABLET PO SCH (08:55)
[2019-10-03] MEDS: predniSONE 10 MG TABLET PO SCH (08:56)
[2019-10-03] MEDS: LISINOPRIL 20 MG TABLET PO SCH (08:56)
[2019-10-03] MEDS: CELECOXIB 100 MG CAPSULE PO SCH ×2 (08:56→21:48)
[2019-10-03] MEDS: CALCIUM CARBONATE 500 MG TABLET PO SCH (08:57)
[2019-10-03] MEDS: ENOXAPARIN 40 MG/0.4 ML SYRINGE. SQ SCH (08:57)
[2019-10-03] MEDS: BACLOFEN 20 MG TABLET PO SCH ×4 (10:58→21:48)
[2019-10-03 17:00] VITALS: BP 136/82
--- NOTE | 2019-10-03 18:38 | NUR ---
Swing Bed Nursing Note Patient Handbook for Assisted given to patient. Nursing Problem: MS flare up/ PT/OT Eval and Treat Cognitive/Behavioral: Alert and Oriented x 4. Pain: None noted on this shift. Respiratory Status: Room Air Skin:intact Bowel/Bladder Continence: Wears depends for stress incontinence, uses bedside potty, 2x assist, uses sit to stand and gait belt. ADL Functional Status: Pt able to dress and feed self. Pt is continent of bowel and bladder. Pt is unable to ambulate at this time. Pt is in a wheel chair. Pt able to perform personal hygiene 2x assist.
[2019-10-03] MEDS: OXYBUTYNIN CHLORIDE 5 MG TABLET PO SCH (21:48)
[2019-10-04 05:57] VITALS: BP 125/69
[2019-10-04] MEDS: LEVOTHYROXINE 50 MCG TABLET PO SCH (06:00)
--- NOTE | 2019-10-04 06:05 | NUR ---
Swing Bed Nursing Note Patient Handbook for [facility] given to patient. Nursing Problem: MS flare up/ PT/OT Eval and Treat Cognitive/Behavioral: Alert and Oriented x 4. Pain: Denies pain this shift. Respiratory Status: Room Air. Skin:intact Bowel/Bladder Continence: Wears depends for stress incontinence, uses bedside commode, 2x assist, uses sit to stand and gait belt. ADL Functional Status: Pt able to dress and feed self. Pt is continent of bowel and bladder. Pt is unable to ambulate at this time. Pt is in a wheel chair. Pt able to perform personal hygiene 2x assist.
[2019-10-04] MEDS: VERAPAMIL SR 120 MG TABLET.ER. PO SCH (08:29)
[2019-10-04] MEDS: OMEGA-3 FATTY ACIDS/FISH OIL 1,000 MG CAPSULE. PO SCH (08:29)
[2019-10-04] MEDS: CELECOXIB 100 MG CAPSULE PO SCH ×2 (08:29→21:24)
[2019-10-04] MEDS: LISINOPRIL 20 MG TABLET PO SCH (08:30)
[2019-10-04] MEDS: CHOLECALCIFEROL (VITAMIN D3) 1,000 UNIT TABLET PO SCH (08:30)
[2019-10-04] MEDS: predniSONE 10 MG TABLET PO SCH (08:30)
[2019-10-04] MEDS: CALCIUM CARBONATE 500 MG TABLET PO SCH (08:30)
[2019-10-04] MEDS: OXYBUTYNIN CHLORIDE 5 MG TABLET PO SCH ×2 (08:31→21:24)
[2019-10-04] MEDS: ENOXAPARIN 40 MG/0.4 ML SYRINGE. SQ SCH (08:33)
[2019-10-04] MEDS: RALOXIFENE 60 MG TABLET. PO SCH (08:34)
[2019-10-04] MEDS: BACLOFEN 20 MG TABLET PO SCH ×4 (08:34→21:24)
[2019-10-04 09:13] VITALS: BP 124/74
[2019-10-05 05:18] VITALS: BP 124/72
[2019-10-05] MEDS: LEVOTHYROXINE 50 MCG TABLET PO SCH (05:42)
--- NOTE | 2019-10-05 06:15 | NUR ---
Swing Bed Nursing Note Patient Handbook for Longterm given to patient. Nursing Problem: MS flare up, PT/OT Eval and Treat Cognitive/Behavioral: Alert and Oriented x 4. Pain: Denies pain this shift. Respiratory Status: Room Air. Skin:intact Bowel/Bladder Continence: Wears depends for stress incontinence, uses bedside commode, 2x assist, uses sit to stand and gait belt. ADL Functional Status: Pt able feed self. Pt is continent of bowel and bladder most of the time. Pt is unable to ambulate at this time. Pt is up to chair this am. Pt states she slept well and had good night.
[2019-10-05] MEDS: BACLOFEN 20 MG TABLET PO SCH ×4 (07:28→20:41)
[2019-10-05] MEDS: CHOLECALCIFEROL (VITAMIN D3) 1,000 UNIT TABLET PO SCH (07:28)
[2019-10-05] MEDS: OXYBUTYNIN CHLORIDE 5 MG TABLET PO SCH ×2 (07:28→20:41)
[2019-10-05] MEDS: OMEGA-3 FATTY ACIDS/FISH OIL 1,000 MG CAPSULE. PO SCH (07:28)
[2019-10-05] MEDS: CALCIUM CARBONATE 500 MG TABLET PO SCH (07:28)
[2019-10-05] MEDS: CELECOXIB 100 MG CAPSULE PO SCH ×2 (07:28→20:41)
[2019-10-05 07:29] LABS: BASO # 0.1 x10^3/uL (0.0-0.2); BASO % 1 % (0-3); EOS # 0.3 x10^3/uL (0.0-0.7); EOS % 4 % (0-3); HEMATOCRIT 42.3 % (36.0-47.0); HEMOGLOBIN 13.6 g/dL (12.0-15.5); LYMPH # 1.9 x10^3/uL (1.0-4.8); LYMPH % 24 % (24-48); MEAN CORPUSCULAR HEMOGLOBIN 29 pg (25-35); MEAN CORPUSCULAR HGB CONC 32 g/dL (31-37); MEAN CORPUSCULAR VOLUME 91 fL (79-100); MONO # 0.7 x10^3/uL (0.0-1.1); MONO % 10 % (0-9); NEUT # 4.8 x10^3uL (1.8-7.7); NEUT % 62 % (31-73); PLATELET COUNT 367 x10^3/uL (140-400); RED BLOOD COUNT 4.63 x10^6/uL (3.50-5.40); RED CELL DISTRIBUTION WIDTH 14.1 % (11.5-14.5); WHITE BLOOD COUNT 7.7 x10^3/uL (4.0-11.0)
[2019-10-05] MEDS: predniSONE 10 MG TABLET PO SCH (07:29)
[2019-10-05] MEDS: LISINOPRIL 20 MG TABLET PO SCH (07:29)
[2019-10-05] MEDS: traMADol 50 MG TABLET PO PRN ×2 (07:29→20:44)
[2019-10-05] MEDS: ENOXAPARIN 40 MG/0.4 ML SYRINGE. SQ SCH (07:30)
[2019-10-05] MEDS: RALOXIFENE 60 MG TABLET. PO SCH (07:31)
[2019-10-05] MEDS: VERAPAMIL SR 120 MG TABLET.ER. PO SCH (07:31)
[2019-10-05 08:13] LABS: % BANDS 7 % (0-9); % EOS 4 % (0-5); % LYMPHS 26 % (24-48); % MONOS 10 % (0-10); % SEGS 53 % (35-66); PLT ESTIMATE INCREASED (ADEQUATE); TOXIC GRANULATION SLIGHT
[2019-10-05 09:03] LABS: ALBUMIN 2.9 g/dL (3.4-5.0); CALCIUM 8.9 mg/dL (8.5-10.1); CREATININE 0.7 mg/dL (0.6-1.0); GFR 82.5; POTASSIUM 3.8 mmol/L (3.5-5.1); TOTAL BILIRUBIN 0.2 mg/dL (0.2-1.0); TOTAL PROTEIN 5.9 g/dL (6.4-8.2)
--- NOTE | 2019-10-05 14:36 | NUR ---
Swing Bed Nursing Note Patient Handbook for Longterm given to patient. Nursing Problem: MS flare up, PT/OT Eval and Treat Cognitive/Behavioral: Alert and Oriented x 4. Pain: Patient reports pain 7/10. Tramadol given with am medication is effective. Reassessment of pain 4/10 at Noon. Respiratory Status: Room Air. LCTA. Skin:intact, reddened edematous BLE Bowel/Bladder Continence: Wears depends for stress incontinence, uses bedside commode, 2x assist, patient able to pull self up using bed for support. ADL Functional Status: Pt able feed self. Pt is continent of bowel and bladder most of the time. Pt is unable to ambulate at this time. Pt is up to chair this am. Pt is pleasant and cooperative with nursing cares. Shower this shift.
[2019-10-05] MEDS ORDERED: SODIUM CHLORIDE 0.65% NASAL SPRAY 45ML BOTTLE. NS PRN (17:00)
--- NOTE | 2019-10-05 17:46 | HP ---
ADMIT DATE: 09/30/2019 HISTORY OF PRESENT ILLNESS: The patient is a 73-year-old female patient who was admitted recently to [address] [place] [address] with generalized weakness and bilateral leg pain. She apparently has had multiple sclerosis for more than [address] Pittman, her neurologist, who treated her with tapering course of steroids for almost 2 weeks that has significantly improved her symptoms; however, she started having progressive weakness when she tapered down her steroids. She was admitted to [address] [place] [address] and as she was unable to walk and to control her urine, she was evaluated there by the physical therapist and transpired that she might benefit from admission to a swing bed and therefore, she was admitted to site to continue the process of rehabilitation. PAST MEDICAL HISTORY: Significant for multiple sclerosis, hypertension, hypothyroidism, osteoporosis and osteoarthritis. PAST SURGICAL HISTORY: Significant for vertebroplasty times 2. ALLERGIES: She has no known drug allergies. FAMILY HISTORY: She has one sister who was diagnosed with morbid obesity, treated with gastric bypass surgery. One brother younger has diabetes. Her father at the age of 74 because of myocardial infarction and complication of diabetes. Her mother at the age of 86 because of Marii's granulomatosis. SOCIAL HISTORY: She is , has 2 daughters. She never smoked, does not drink alcohol or use any recreational drugs. She worked at [employer] for almost 38 years. MEDICATIONS: She is currently on following medications: She is on oxybutynin chloride 5 mg twice a day; cetirizine 10 mg daily; calcium carbonate 500 mg daily; Celebrex 200 mg twice a day; Lovenox 40 mg once a day; verapamil 240 mg daily; vitamin D 5000 units once a day; fish oil 1000 mg once a day; lisinopril 40 mg daily; Evista (raloxifene) 60 mg daily; prednisone 10 mg once a day; levothyroxine sodium 50 mcg once a day; she is on tramadol 100 mg every 6 hours and baclofen 20 mg 4 times a day. REVIEW OF SYSTEMS: Apparently, the patient continued to be very weak and fearful of falls according to nursing staff. Her performance is variable. PHYSICAL EXAMINATION: GENERAL: When I examined her this afternoon, she looked well and was clearly in no apparent respiratory distress. No pallor, jaundice, cyanosis, lymphadenopathy or thyromegaly. No jugular venous distention. No lower limb edema. VITAL SIGNS: Her heart rate was 62, blood pressure 124/72, temperature was 97.7, respiratory rate was 18 and oxygen saturation was 94% on room air. HEAD, EYES, EARS, NOSE AND THROAT: Showed normocephalic, atraumatic. NECK: Supple. HEART: Showed normal first and second heart sounds. No gallop or murmur. CHEST: Clear to auscultation. No crepitation or rhonchi. ABDOMEN: Distended, soft, nontender. NEUROLOGIC: She is awake, alert, responding appropriately. All cranial nerves are intact. She is mostly bedbound, chair bound. She apparently ambulates with a walker; however, she seemed to be, according to nursing staff, weaker than when she was at [address] [place] [address] and very fearful of fall. LABORATORY DATA: Showed a white cell count 7700, hemoglobin 13.6, hematocrit 42, MCV 91, and platelet count 367,000 with normal manual differential. Her chemistry showed a serum sodium 144, potassium 3.8, chloride 108, bicarbonate 28, anion gap of 8, BUN 20, creatinine was 0.7, estimated GFR was 82 mL per minute. Her glucose was 100, calcium was 8.9. Total bilirubin, AST, ALT, alkaline phosphatase were normal. Total protein was 5.9, albumin was 2.9. Her urinalysis was essentially unremarkable. ASSESSMENT AND PLAN: In summary, this is a 73-year-old female patient with longstanding multiple sclerosis, but was admitted with exacerbation of her multiple sclerosis with progressive weakness. She is here to continue with the process of rehabilitation. She has multiple other medical problems including hypertension, hypothyroidism as well as osteoporosis and osteoarthritis. PLAN: Her lab works are all within acceptable range. She seemed to be both clinically and biochemically euthyroid. TSH was 3.959; however, her total T4 and total T3 and free T4 are all within normal range. GILBERTO RENTERIA MD DR: MORENA/rhiannon JOB#: [id number] / [id number]
[2019-10-05 17:56] VITALS: BP 117/72
[2019-10-06] MEDS ORDERED: CALCIUM CARBONATE 500 MG TAB.CHEW PO PRN (00:30)
--- NOTE | 2019-10-06 05:29 | NUR ---
Swing Bed Nursing Note Patient Handbook for [facility] given to patient. Nursing Problem: MS flare up, PT/OT Eval and Treat Cognitive/Behavioral: Alert and Oriented x 4. Pain: Patient reports pain 5/10. Tramadol given with pm medication is effective. Reassessment of pain 4/10. Respiratory Status: Room Air, CTA. Skin:intact, reddened, edematous BLE Bowel/Bladder Continence: Wears depends for stress incontinence, uses bedside commode, 2x assist from low seating or when tired, patient able to pull self up using bed for support. Stand and pivot from bed to BSC x1 assist. ADL Functional Status: Pt able feed self. Pt is continent of bowel and bladder most of the time. Pt is unable to ambulate at this time. Pt is pleasant and cooperative with nursing cares.
[2019-10-06] MEDS: LEVOTHYROXINE 50 MCG TABLET PO SCH (06:07)
[2019-10-06 06:14] VITALS: BP 136/68
[2019-10-06] MEDS: CELECOXIB 100 MG CAPSULE PO SCH ×2 (07:54→20:09)
[2019-10-06] MEDS: ENOXAPARIN 40 MG/0.4 ML SYRINGE. SQ SCH (07:54)
[2019-10-06] MEDS: OXYBUTYNIN CHLORIDE 5 MG TABLET PO SCH ×2 (07:55→20:10)
[2019-10-06] MEDS: CALCIUM CARBONATE 500 MG TABLET PO SCH (07:55)
[2019-10-06] MEDS: traMADol 50 MG TABLET PO PRN ×2 (07:55→20:10)
[2019-10-06] MEDS: BACLOFEN 20 MG TABLET PO SCH ×4 (07:55→20:09)
[2019-10-06] MEDS: OMEGA-3 FATTY ACIDS/FISH OIL 1,000 MG CAPSULE. PO SCH (07:55)
[2019-10-06] MEDS: predniSONE 10 MG TABLET PO SCH (07:55)
[2019-10-06] MEDS: LISINOPRIL 20 MG TABLET PO SCH (07:55)
[2019-10-06] MEDS: RALOXIFENE 60 MG TABLET. PO SCH (07:56)
[2019-10-06] MEDS: CHOLECALCIFEROL (VITAMIN D3) 1,000 UNIT TABLET PO SCH (07:56)
[2019-10-06] MEDS: VERAPAMIL SR 120 MG TABLET.ER. PO SCH (07:56)
--- NOTE | 2019-10-06 10:48 | NUR ---
Swing Bed Nursing Note Patient Handbook for Assisted given to patient. Nursing Problem: MS flare up, PT/OT Eval and Treat Cognitive/Behavioral: Alert and Oriented x 4. Pain: Patient reports pain 4/10. Tramadol given with am medication is effective. Reassessment of pain 010/. Respiratory Status: Room Air. LCTA. Skin:intact, reddened edematous BLE Bowel/Bladder Continence: Wears depends for stress incontinence, uses bedside commode, 2x assist, patient able to pull self up using bed for support. LBM ADL Functional Status: Pt able feed self. Pt is continent of bowel and bladder most of the time. Pt is unable to ambulate at this time. Pt is up to chair this am. Pt is pleasant and cooperative with nursing cares.
[2019-10-06 18:22] VITALS: BP 122/78
--- NOTE | 2019-10-07 04:29 | NUR ---
Swing Bed Nursing Note: Nursing Problem: MS flare up, PT/OT Eval and Treat Cognitive/Behavioral: Alert and Oriented x 4 Pain: Patient reports pain 5/10. Tramadol given with pm medication. Reassessment pt was sleeping Respiratory Status: Room Air, CTA Skin: CDI, reddened edematous BLE Bowel/Bladder Continence: Wears depends for stress incontinence, uses bedside commode, 2x assist, patient able to pull self up using bed for support. [facility] 10/06/2019 x3 ADL Functional Status: Pt is continent of bowel and bladder most of the time. Pt is unable to ambulate at this time. Pt is up to chair this am. Pt is pleasant and cooperative with nursing cares.
[2019-10-07] MEDS: LEVOTHYROXINE 50 MCG TABLET PO SCH (05:26)
[2019-10-07 05:41] VITALS: BP 111/64
[2019-10-07] MEDS: BACLOFEN 20 MG TABLET PO SCH ×4 (08:27→20:53)
[2019-10-07] MEDS: OXYBUTYNIN CHLORIDE 5 MG TABLET PO SCH ×2 (08:27→20:53)
[2019-10-07] MEDS: CALCIUM CARBONATE 500 MG TABLET PO SCH (08:27)
[2019-10-07] MEDS: CELECOXIB 100 MG CAPSULE PO SCH ×2 (08:27→20:53)
[2019-10-07] MEDS: CHOLECALCIFEROL (VITAMIN D3) 1,000 UNIT TABLET PO SCH (08:27)
[2019-10-07] MEDS: OMEGA-3 FATTY ACIDS/FISH OIL 1,000 MG CAPSULE. PO SCH (08:27)
[2019-10-07] MEDS: ENOXAPARIN 40 MG/0.4 ML SYRINGE. SQ SCH (08:28)
[2019-10-07] MEDS: predniSONE 10 MG TABLET PO SCH (08:28)
[2019-10-07] MEDS: LISINOPRIL 20 MG TABLET PO SCH (08:28)
[2019-10-07] MEDS: VERAPAMIL SR 120 MG TABLET.ER. PO SCH (08:29)
[2019-10-07] MEDS: RALOXIFENE 60 MG TABLET. PO SCH (08:29)
[2019-10-07] MEDS: traMADol 50 MG TABLET PO PRN ×2 (09:54→20:54)
--- NOTE | 2019-10-07 16:39 | NUR ---
Swing Bed Nursing Note: Nursing Problem: MS flare up, PT/OT Eval and Treat Cognitive/Behavioral: Alert and Oriented x 4 Pain: Patient reports pain 9/10. Tramadol given in AM with noted relief. Respiratory Status: Room Air, CTA Skin: CDI, reddened edematous BLE Bowel/Bladder Continence: Wears depends for stress incontinence, uses bedside commode, 2x assist, patient able to pull self up using bed for support. [facility] 10/07/2019 ADL Functional Status: Patient needs x1 assist for bathing, dressing, grooming. x2 assist for transfers and toileting. Patient uses w/c to ambulate, able to wheel self. Set up help only for eating.
[2019-10-07 18:43] VITALS: BP 127/75
--- NOTE | 2019-10-07 22:47 | NUR ---
[facility] park Bed Nursing Note: Nursing Problem: MS flare up, PT/OT Eval and Treat Cognitive/Behavioral: Alert and Oriented x 4. Pleasant and interactive with staff. Pain: Patient reports that her back gets sore at bedtime. Tramadol given with night time medication. Reassessment pt was sleeping Respiratory Status: Room Air, CTA Skin: CDI, reddened edematous BLE. Legs elevated in bed. Bowel/Bladder Continence: Wears depends for stress incontinence, uses bedside commode, 2x assist, patient able to pull self up using bed for support. [facility] 10/07/19 ADL Functional Status: Pt is continent of bowel and bladder most of the time. Pt is unable to ambulate at this time. Pt is up to chair in this evening. Pt is pleasant and cooperative with nursing cares. x2 assist with transfer and sit to stand lift at times.
[2019-10-08] MEDS: LEVOTHYROXINE 50 MCG TABLET PO SCH (05:35)
[2019-10-08 05:52] VITALS: BP 130/64
[2019-10-08] MEDS: CHOLECALCIFEROL (VITAMIN D3) 1,000 UNIT TABLET PO SCH (08:42)
[2019-10-08] MEDS: ENOXAPARIN 40 MG/0.4 ML SYRINGE. SQ SCH (08:42)
[2019-10-08] MEDS: OMEGA-3 FATTY ACIDS/FISH OIL 1,000 MG CAPSULE. PO SCH (08:43)
[2019-10-08] MEDS: CELECOXIB 100 MG CAPSULE PO SCH ×2 (08:43→20:32)
[2019-10-08] MEDS: BACLOFEN 20 MG TABLET PO SCH ×4 (08:43→20:32)
[2019-10-08] MEDS: predniSONE 10 MG TABLET PO SCH (08:44)
[2019-10-08] MEDS: LISINOPRIL 20 MG TABLET PO SCH (08:44)
[2019-10-08] MEDS: CALCIUM CARBONATE 500 MG TABLET PO SCH (08:44)
[2019-10-08] MEDS: OXYBUTYNIN CHLORIDE 5 MG TABLET PO SCH ×2 (08:44→20:32)
[2019-10-08] MEDS: RALOXIFENE 60 MG TABLET. PO SCH (08:46)
[2019-10-08] MEDS: VERAPAMIL SR 120 MG TABLET.ER. PO SCH (08:48)
[2019-10-08] MEDS: traMADol 50 MG TABLET PO PRN ×2 (17:15→20:32)
--- NOTE | 2019-10-08 17:29 | RAD ---
Three-view lumbar spine series Clinical indications: Sudden severe low back pain. History compression fractures. COMPARISON: CT study lumbar spine dated 11/08/2011. FINDINGS: Generalized osteopenia is seen. The bones are washed out. Again seen is a compression fracture of L1 which has progressed and is now severe. Again seen is a compression fracture of L2 which has been treated with methylmethacrylate and is unchanged. Again seen is a compression fracture of L3 which is unchanged but has been treated with methylmethacrylate in the interim. Again seen is a compression fracture of L4 which is unchanged but has been treated with methylmethacrylate in the interim. Again seen is a compression fracture of L5 which is unchanged and has been treated with methylmethacrylate. Again seen is a mild compression fracture of T12 with is stable. There are new mild compression fractures of T10 and T11. There is a moderate to severe compression fracture T9. This area was not included on the previous study. Therefore this is indeterminate. IMPRESSION: New compression fractures of T10 and T11 since the prior study and 2012. Progression of previously seen compression fracture of L1. Moderate to severe compression fracture of T9 of indeterminate age. The other compression fractures are stable although some have been treated with methylmethacrylate in the interim. Electronically signed by: Stuart Mo MD (10/08/2019 5:26 PM) [facility]
--- NOTE | 2019-10-08 17:44 | NUR ---
Patient is alert and oriented x 4, speech is clear, able to make wants and needs known and able to verbalize understanding of others. Patient mood is flat at times, gets upset easily with PT and OT this shift. Patient is cooperative with nursing cares this shift. Patient is set up assist with meals. Patient is x 2 assist using STS for transfers. Patient is staff propelled wheel chair from room to dining area. Patient is incontinent of urine x 3 this shift. Patient is continent of bowel. Last BM 10/09/2019. Patient wears disposable briefs for comfort. Patient c/o pain in low back with sitting, redness on left lower leg. Dr. Foley aware and assessed patient. New orders for oral antibiotic received, see EMAR for details, new order for Xray also received. To notify Dr. Foley of results. Patient received PRN Tramadol order x 1 this shift at dinner time. Patient also used ice pack on lower back for pain management this shift. Patient uses bedside commode for toileting x 7 this shift. Lungs are CTA, no cough or SOA observed. RA for oxygen. HRR auscultated with regular rhythm. Skin is in tact through out except LLE, slightly discolored pink, slight warm to touch, Dr. Foley aware. BLE non pitting edema, strong and equal pedal pulses. Patient is currently resting in bed with call light and fresh fluids with in reach. Dr. Pittman consulted again per Dr. Foley verbal request, for patient MS plan of care.
--- NOTE | 2019-10-08 17:58 | NUR ---
New orders for lidoderm patches x 2 scheduled for management of back pain.
[2019-10-08] MEDS: LIDOCAINE (700MG/PATCH) PATCH. TD SCH (18:00)
[2019-10-08 18:53] VITALS: BP 108/77
[2019-10-08] MEDS: CEPHALEXIN 250 MG CAPSULE PO SCH (20:31)
[2019-10-08] MEDS ORDERED: PATCH REMOVAL. MC SCH (21:00)
--- NOTE | 2019-10-09 01:59 | NUR ---
Swing Bed Nursing Note: Nursing Problem: PT ADMITTED TO SWING BED FOR PT/OT STRENGTHENING AND RECONDITIONING POST MS FLARE UP. Cognitive/Behavioral: PT IS A/OX4, PLEASANT AND COOPERATIVE WITH NURSING STAFF. NO BEHAVIORS NOTED. Pain: PT C/O PAIN TO LOWER BACK AND RIGHT ANKLE. XR TODAY OF LUMBAR SPINE SHOWED MULTIPLE COMPRESSION FRACTURES. PT RATES PAIN 4/10 WHILE LAYING IN BED. PT REPORTS PAIN SIGNIFICANTLY INCREASES WITH ADL'S AND SITTING UP IN WC. PRN TRAMADOL GIVEN REQUESTED. PT REFUSED LIDODERM PATCH TO BE PLACED TONIGHT, WISHES TO BEGIN IN AM PRIOR TO THERAPY. PT RESTING COMFORTABLY UPON REASSESSMENT. Respiratory Status: LUNGS CTA. DENIES COUGH OR SOA. PT SATS 93% ON RA. Skin: SKIN IS DRY/FLAKY, BUT INTACT. REDNESS AND SWELLING (1-2+ NON-PITTING) NOTED TO BLE, LEFT WORSE THAN RIGHT. US NEG FOR DVT. STARTED ON KEFLEX TONIGHT FOR POSSIBLE CELLULITIS. Bowel/Bladder Continence: PT HAS BEEN INCONTINENT OF BLADDER THIS SHIFT, BUT AWARE WHEN SHE IS WET. WEARS DEPENDS. UP TO BSC FOR BM TODAY 10/08/19 X2. ADL Functional Status: PT ABLE TO USE SIDE RAILS TO PULL SELF UP IN BED. PT HAS NOT BEEN ABLE TO AMBULATE, REQUIRING X2 ASSIST WITH STS LIFT TO CHAIR OR BSC. PT REQUIRES X1 ASSISTANCE TO CHANGE INTO HS CLOTHES. TOLERATED PILLS WHOLE. DECLINED HS SNACK.
--- NOTE | 2019-10-09 02:11 | PN ---
DATE: 10/08/2019 SUBJECTIVE: The patient was seen today at her request as she is complaining of pain and swelling and redness of her left lower extremity. She is also complaining of back pain and difficulty walking. There is no history of fall. PHYSICAL EXAMINATION: GENERAL: When I examined her, she looked well and was clearly in no apparent respiratory distress, pale, but no jaundice, cyanosis or thyromegaly. No jugular venous distention. No limb edema. VITAL SIGNS: Her heart rate was 61, blood pressure 130/64, temperature 97.6, respiratory rate was 18 and oxygen saturation was 94% on room air. HEAD, EYES, EARS, NOSE AND THROAT: Showed normocephalic, atraumatic. NECK: Supple. HEART: Showed normal first and second heart sounds. No gallop or murmurs. CHEST: Clear to auscultation. No crepitation or rhonchi. ABDOMEN: Distended, soft, nontender. No guarding or rigidity. No organomegaly. All hernial orifice intact. Bowel sounds normal. NEUROLOGIC: She was awake, alert, responding appropriately. All cranial nerves intact. She moves upper extremities, __ lower extremities. She definitely has difficulty walking and her left lower extremities, she has both legs are swollen, but the left leg is erythematous and hot to touch. LABORATORY DATA: Her most recent lab work showed her white cell count to be 7700, hemoglobin 13, hematocrit 42, MCV 91, and platelet count 367,000. Her chemistry was unremarkable. We did do venous Doppler ultrasound of both lower extremities showed no evidence of deep vein thrombosis. ASSESSMENT AND PLAN: 1. Left lower extremity cellulitis, which I started her on Keflex 500 mg 3 times a day for 10 days. I also arranged for her to have a x-ray of her lumbar spine and if there is any compression fracture, she has severe back pain, mostly in the lower back, if she does have compression fracture, obviously, she might be a candidate for vertebroplasty. GILBERTO RENTERIA MD DR: MORENA/rhiannon JOB#: [id number] / [id number]
[2019-10-09 06:15] VITALS: BP 120/74
[2019-10-09] MEDS: LEVOTHYROXINE 50 MCG TABLET PO SCH (06:15)
[2019-10-09] MEDS: ENOXAPARIN 40 MG/0.4 ML SYRINGE. SQ SCH (09:31)
[2019-10-09] MEDS: CELECOXIB 100 MG CAPSULE PO SCH (09:31)
[2019-10-09] MEDS: OXYBUTYNIN CHLORIDE 5 MG TABLET PO SCH (09:31)
[2019-10-09] MEDS: LIDOCAINE (700MG/PATCH) PATCH. TD SCH (09:31)
[2019-10-09] MEDS: RALOXIFENE 60 MG TABLET. PO SCH (09:32)
[2019-10-09] MEDS: OMEGA-3 FATTY ACIDS/FISH OIL 1,000 MG CAPSULE. PO SCH (09:32)
[2019-10-09] MEDS: CEPHALEXIN 250 MG CAPSULE PO SCH ×2 (09:32→13:18)
[2019-10-09] MEDS: CHOLECALCIFEROL (VITAMIN D3) 1,000 UNIT TABLET PO SCH (09:32)
[2019-10-09] MEDS: predniSONE 10 MG TABLET PO SCH (09:32)
[2019-10-09] MEDS: CALCIUM CARBONATE 500 MG TABLET PO SCH (09:32)
[2019-10-09] MEDS: BACLOFEN 20 MG TABLET PO SCH ×2 (09:32→13:18)
[2019-10-09] MEDS: LISINOPRIL 20 MG TABLET PO SCH (09:33)
[2019-10-09] MEDS: VERAPAMIL SR 120 MG TABLET.ER. PO SCH (09:33)
[2019-10-09 13:07] VITALS: BP 138/87
--- NOTE | 2019-10-09 13:32 | NUR ---
Swing Bed Nursing Note: Nursing Problem: PT ADMITTED TO SWING BED FOR PT/OT STRENGTHENING AND RECONDITIONING POST MS FLARE UP. Cognitive/Behavioral: PT IS A/OX4, PLEASANT AND COOPERATIVE WITH NURSING STAFF. NO BEHAVIORS NOTED. Pain: PT C/O PAIN TO LOWER BACK AND RIGHT ANKLE. XR OF LUMBAR SPINE SHOWED MULTIPLE COMPRESSION FRACTURES. PT RATES PAIN 4/10 WHILE LAYING IN BED. PT REPORTS PAIN SIGNIFICANTLY INCREASES WITH ADL'S AND SITTING UP IN WC. PRN TRAMADOL GIVEN REQUESTED-LIDOCAINE PATCH APPLIED THIS AM. PT RESTING COMFORTABLY UPON REASSESSMENT. Respiratory Status: LUNGS CTA. DENIES COUGH OR SOA. PT SATS 93% ON RA. Skin: SKIN IS DRY/FLAKY, BUT INTACT. REDNESS AND SWELLING (1-2+ NON-PITTING) NOTED TO BLE, LEFT WORSE THAN RIGHT. US NEG FOR DVT. STARTED ON KEFLEX TONIGHT FOR POSSIBLE CELLULITIS. Bowel/Bladder Continence: PT HAS BEEN INCONTINENT OF BLADDER THIS SHIFT, BUT AWARE WHEN SHE IS WET. WEARS DEPENDS. UP TO BSC FOR BM TODAY 10/08/19 X2. ADL Functional Status: PT ABLE TO USE SIDE RAILS TO PULL SELF UP IN BED. PT HAS NOT BEEN ABLE TO AMBULATE, REQUIRING X2 ASSIST WITH STS LIFT TO CHAIR OR BSC. PT REQUIRES X1 ASSISTANCE TO CHANGE INTO HS CLOTHES. TOLERATED PILLS WHOLE. INDEPENDENT WITH ALL MEALS.
--- NOTE | 2019-10-09 13:34 | NUR ---
Pt to transfer to [facility]. Report called to [facility] on . EMS called. Pt and family aware of plan of care. Pt is packed up and awaiting transport.
--- NOTE | 2019-10-09 14:32 | NUR ---
Pt transferred to [facility] via EMS. Pt alert, oriented, NAD, VSS at transfer. Pt aware of plan of care and questions answered. All belongings accounted for. No falls or injury reported.
--- NOTE | 2019-10-09 15:57 | DS ---
DATE OF DISCHARGE: 10/09/2019 HOSPITAL COURSE: The patient is a 73-year-old female patient who was admitted to swing bed to continue the process of rehabilitation after admission to the acute care for exacerbation of her multiple sclerosis. She did initially very well and yesterday she started complaining of severe back pain. She also has some redness and swelling of her left lower extremity and so we did treat her empirically for possible cellulitis in the left lower extremity and also we did x-ray of her lumbar spine, which basically showed that the patient has new compression fracture of T10 and T11 since the prior study and in 2012 progression of previously seen compression fracture of L1. She also has [id number] compression fracture of T9 of indeterminate age. The other compression fractures are stable, although some have been treated with methylmethacrylate in the interim. I spoke with Dr. Herr who recommended to do an MRI and this patient is amenable for vertebroplasty and therefore, a decision was made to transfer her to [facility] to arrange for an MRI of her thoracolumbar spine and also to consult Dr. Herr for kyphoplasty. PAST MEDICAL HISTORY: Significant for multiple sclerosis, hypertension, hypothyroidism, osteoporosis and osteoarthritis. PAST SURGICAL HISTORY: Significant for multiple vertebroplasties. ALLERGIES: She has no known drug allergies. When I saw her today, she was sitting comfortably in her wheelchair, in no apparent distress. She continued to complain of back pain, but denied any loss of bowel or bladder function. PHYSICAL EXAMINATION: GENERAL: When I examined her, she looked well and was clearly in no apparent respiratory distress. No pallor, jaundice, cyanosis or thyromegaly. No jugular venous distention. No limb edema. VITAL SIGNS: Her heart rate was 92, blood pressure was 138/87, temperature was 98.7, respiratory rate was 18 and oxygen saturation was 94% on room air. HEAD, EYES, EARS, NOSE AND THROAT: Showed normocephalic, atraumatic. NECK: Supple. HEART: Showed normal first and second heart sounds with no gallop, rub or murmur. CHEST: Clear to auscultation. No crepitation or rhonchi. ABDOMEN: Distended, soft, nontender. No guarding or rigidity. No organomegaly. All hernial orifice intact. Bowel sounds normal. NEUROLOGIC: She was awake, alert, responding appropriately. All cranial nerves intact. She moves upper extremities to much good extent than lower extremities, she is mostly bed bound, wheelchair bound; however, she is able to ambulate with assistance with a standby assist. LABORATORY DATA: Showed a white cell count 7700, hemoglobin 13, hematocrit 42, MCV 91, and platelet count 367,000. Her chemistry showed a serum sodium 144, potassium 3.8, chloride 108, bicarbonate 28, anion gap of 8, BUN 20, creatinine 0.7, estimated GFR was 82 mL per minute. Her glucose was 100, calcium was 8.9. Total bilirubin, AST, ALT, alkaline phosphatase were normal. Total protein was 5.9, albumin was 2.9. DISCHARGE MEDICATIONS: She will be discharged or transferred to [facility] to continue on lactobacillus rhamnosus twice a day. She is on Lidoderm patch 1 applied topically at bedtime, cephalexin 500 mg 3 times a day, calcium carbonate 500 mg after meals as needed, saline nasal spray one spray to each nostril as needed, oxybutynin chloride 5 mg twice a day, cetirizine 10 mg daily, calcium carbonate 500 mg daily, Celebrex 200 mg twice a day, Lovenox 40 mg subcutaneous once a day, verapamil hydrochloride 240 mg once a day, vitamin D 5000 international unit once a day, fish oil 1000 mg daily, lisinopril 40 mg once a day, raloxifene 60 mg. She is on prednisone 10 mg once a day, levothyroxine sodium 50 mcg once a day, tramadol 100 mg every 6 hours, baclofen 20 mg 3 times a day. FINAL DISCHARGE DIAGNOSES: 1. Multiple lumbar vertebral compression fracture. 2. Multiple sclerosis. 3. Hypertension. 4. Hypothyroidism. 5. Osteoporosis and osteoarthritis. GILBERTO RENTERIA MD DR: MORENA/rhiannon JOB#: [id number] / [id number]
[2019-10-09] MEDS ORDERED: LACTOBACILLUS RHAMNOSUS GG 1 CAPSULE. PO SCH (21:00)
== END 2019-10-09 14:34 | disposition short-term general hospital (02) | DRG 552 ==
LOC: LND 15:07
PROVIDERS: ADMIT Internal Medicine; ATTEND Internal Medicine
DX: M54.9 Dorsalgia, unspecified (principal); L03.116 Cellulitis of left lower limb; M48.54XA Collapsed vertebra, not elsewhere classified, thoracic region, initial encounter for fracture; M48.56XA Collapsed vertebra, not elsewhere classified, lumbar region, initial encounter for fracture; E03.9 Hypothyroidism, unspecified; G35 Multiple sclerosis; I10 Essential (primary) hypertension; M19.90 Unspecified osteoarthritis, unspecified site; M81.0 Age-related osteoporosis without current pathological fracture; Z82.49 Family history of ischemic heart disease and other diseases of the circulatory system; Z83.3 Family history of diabetes mellitus
CPT/HCPCS: 36415; 72100; 80053; 81001; 85007; 85025; J1650; J7512; 97110; 97112; 97116; 97530; 97535

== ENCOUNTER 2019-10-13 19:27 | Inpatient (IN) | payer MEDICARE, OTHER ==
[~2019-10-13] VITALS: Ht 160 cm; Wt 57.1 kg
[~2019-10-13 19:27] MED LIST changes: +CALC500T31 PO; +CHOL500062 PO; +OMEG-33 PO
[2019-10-13 19:50] VITALS: BP 129/85
[2019-10-13] MEDS ORDERED: traMADol 50 MG TABLET PO PRN (20:00)
[2019-10-13] MEDS ORDERED: OXYB5TAB10 PO (20:41)
[2019-10-13] MEDS ORDERED: LIDO700A21 TP (20:41)
[2019-10-13] MEDS ORDERED: CEPH500T PO (20:41)
[2019-10-13] MEDS ORDERED: CALC500T31 PO (20:41)
[2019-10-13] MEDS ORDERED: ENOX40DI SQ (20:41)
[2019-10-13] MEDS ORDERED: TRAM-48 PO (20:41)
[2019-10-13] MEDS ORDERED: CYCL-331 PO (20:41)
[2019-10-13] MEDS ORDERED: LACT1CAP21 PO (20:41)
[2019-10-13] MEDS ORDERED: CETI10TA16 PO (20:41)
[2019-10-13] MEDS ORDERED: SODI30SP NS (20:41)
[2019-10-13] MEDS: CELECOXIB 100 MG CAPSULE PO SCH (21:44)
[2019-10-14 05:26] VITALS: BP 159/78
[2019-10-14] MEDS ORDERED: CETIRIZINE HCL 10 MG TABLET PO PRN (07:15)
[2019-10-14] MEDS ORDERED: CALCIUM CARBONATE 500 MG TAB.CHEW PO PRN (07:15)
[2019-10-14] MEDS ORDERED: SODIUM CHLORIDE 0.65% NASAL SPRAY 45ML BOTTLE. NS PRN (07:15)
[2019-10-14] MEDS: OMEGA-3 FATTY ACIDS/FISH OIL 1,000 MG CAPSULE. PO SCH (08:51)
[2019-10-14] MEDS: CHOLECALCIFEROL (VITAMIN D3) 1,000 UNIT TABLET PO SCH (08:51)
[2019-10-14] MEDS: CELECOXIB 100 MG CAPSULE PO SCH ×2 (08:52→20:24)
[2019-10-14] MEDS: LISINOPRIL 20 MG TABLET PO SCH (08:52)
[2019-10-14] MEDS: CALCIUM CARBONATE 500 MG TABLET PO SCH (08:52)
[2019-10-14] MEDS: predniSONE 10 MG TABLET PO SCH (08:52)
[2019-10-14] MEDS: CYCLOBENZAPRINE 10 MG TABLET. PO SCH ×3 (08:53→20:24)
[2019-10-14] MEDS: OXYBUTYNIN CHLORIDE 5 MG TABLET PO SCH ×2 (08:53→20:24)
[2019-10-14] MEDS: LEVOTHYROXINE 50 MCG TABLET PO SCH (08:53)
[2019-10-14] MEDS: VERAPAMIL SR 120 MG TABLET.ER. PO SCH (09:00)
[2019-10-14] MEDS ORDERED: ENOXAPARIN 40 MG/0.4 ML SYRINGE. SQ SCH (09:00)
[2019-10-14] MEDS ORDERED: LIDOCAINE (700MG/PATCH) PATCH. TP SCH (09:00)
[2019-10-14] MEDS ORDERED: LACTOBACILLUS RHAMNOSUS GG PO SCH (09:00)
[2019-10-14] MEDS: CEPHALEXIN 250 MG CAPSULE PO SCH ×3 (09:09→20:24)
[2019-10-14] MEDS: traMADol 50 MG TABLET PO PRN ×2 (09:11→15:53)
[2019-10-14] MEDS: RALOXIFENE 60 MG TABLET. PO SCH (09:12)
[2019-10-14 11:07] LABS: BASO # 0.1 x10^3/uL (0.0-0.2); BASO % 1 % (0-3); EOS # 0.1 x10^3/uL (0.0-0.7); EOS % 1 % (0-3); HEMATOCRIT 45.6 % (36.0-47.0); LYMPH # 1.6 x10^3/uL (1.0-4.8); LYMPH % 21 % (24-48); MEAN CORPUSCULAR HEMOGLOBIN 30 pg (25-35); MEAN CORPUSCULAR HGB CONC 33 g/dL (31-37); MEAN CORPUSCULAR VOLUME 91 fL (79-100); MONO # 0.6 x10^3/uL (0.0-1.1); MONO % 8 % (0-9); NEUT # 5.3 x10^3uL (1.8-7.7); NEUT % 70 % (31-73); PLATELET COUNT 366 x10^3/uL (140-400); RED BLOOD COUNT 5.02 x10^6/uL (3.50-5.40); RED CELL DISTRIBUTION WIDTH 14.3 % (11.5-14.5); WHITE BLOOD COUNT 7.6 x10^3/uL (4.0-11.0)
[2019-10-14 11:26] LABS: ALBUMIN 3.2 g/dL (3.4-5.0); ALBUMIN/GLOBULIN RATIO 0.9 (1.0-1.7); CALCIUM 9.7 mg/dL (8.5-10.1); CREATININE 0.8 mg/dL (0.6-1.0); GFR 70.7; POTASSIUM 3.8 mmol/L (3.5-5.1); TOTAL BILIRUBIN 0.3 mg/dL (0.2-1.0); TOTAL PROTEIN 6.8 g/dL (6.4-8.2)
[2019-10-14 14:11] LABS: AMORPHOUS SEDIMENT,UR PRESENT /HPF; BACTERIA,URINE 0 /HPF (0-FEW); BILIRUBIN,URINE NEG (NEG); CLARITY,URINE HAZY; COLOR,URINE YELLOW; GLUCOSE,URINE NEG (NEG); NITRITE,URINE NEG (NEG); SQUAMOUS EPITHELIAL CELL,UR FEW /LPF; UROBILINOGEN,URINE 0.2 mg/dL (0.2 mg/dL)
[2019-10-14 14:25] LABS: % ATYL 7 % (0-0); % BANDS 4 % (0-9); % BASOS 2 % (0-3); % LYMPHS 20 % (24-48); % MONOS 7 % (0-10); % MYELOS 5 % (0-0); % SEGS 55 % (35-66)
--- NOTE | 2019-10-14 14:26 | HP ---
ADMIT DATE: 10/14/2019 HISTORY OF PRESENT ILLNESS: The patient is a 73-year-old female patient who was admitted originally to this hospital on 09/27/2019 with exacerbation of her multiple sclerosis. She was evaluated by the physical therapist as well as occupational therapist and the neurologist, Dr. Pittman, did not recommend any further treatment with steroids and it was felt that the patient might benefit from swing bed to continue the process of rehabilitation. While there, she developed severe back pain and x-ray of her lumbar spine showed that she has what seemed to be new compression fracture of T11-T12 since the prior study and also possible progression of previously seen compression fracture of L1 and therefore, she was transferred to [facility] where she had an MRI, which showed that all these changes are old and Dr. Herr felt that the patient would not benefit from augmentation therapy and therefore, the patient was transferred back to swing bed to continue the process of rehabilitation. She was noted yesterday prior to discharge to be somewhat hallucinating and therefore basically the patient was transferred back to swing bed at [facility] with the plan is to continue with physical and occupational therapy and for hallucination, we will consult Dr. Maldonado, the psychiatrist as well as Dr. Pittman as when I saw her today, the occupational therapist as well nursing staff felt that she has some more weakness in her right upper extremity than left. PAST MEDICAL HISTORY: Significant for longstanding multiple sclerosis for more than 25 years. She also has hypertension, hypothyroidism, osteoporosis and osteoarthritis. PAST SURGICAL HISTORY: Significant for vertebroplasty x 2. ALLERGIES: She has no known drug allergies. FAMILY HISTORY: She has one sister who has morbid obesity, treated with gastric bypass surgery, and one brother younger and has diabetes. Her father at age of 74 because of myocardial infarction and complication of diabetes. Her mother at the age of 86 because of Marii's granulomatosis. SOCIAL HISTORY: She is , has 2 daughters. She never smoked, does not drink alcohol or use any recreational drugs. She worked at [employer] for almost 38 years. MEDICATIONS: She is currently on following medications: She is on cetirizine 10 mg once a day, cephalexin 500 mg 3 times a day, cyclobenzaprine 10 mg 3 times a day, Lovenox 40 mg subcutaneously once a day, omega-3 fatty acids once a day, verapamil 240 mg daily, lisinopril 40 mg daily, Celebrex 200 mg twice a day, tramadol 100 mg every 6 hours, calcium carbonate 500 mg daily, prednisone 10 mg once a day, raloxifene 60 mg once a day, levothyroxine sodium 50 mcg once a day, oxybutynin chloride 5 mg twice a day, cholecalciferol with vitamin D 5000 International Unit once a day. PHYSICAL EXAMINATION: GENERAL: When I examined her this morning, she looked well and was clearly in no apparent respiratory distress. There is no pallor, jaundice, cyanosis or thyromegaly. No jugular venous distention. No limb edema. VITAL SIGNS: Her heart rate was 120, blood pressure was 159/78, temperature was 98, respiratory rate 20, and oxygen saturation was 95%. HEAD, EYES, EARS, NOSE AND THROAT: Showed normocephalic, atraumatic. NECK: Supple. HEART: Showed normal first and second heart sounds. No gallop or murmur. CHEST: Clear to auscultation. No crepitation or rhonchi. ABDOMEN: Distended, soft, nontender. No guarding or rigidity. No organomegaly. All hernial orifice intact. Bowel sounds normal. NEUROLOGIC: She was awake, alert, somewhat confused and disoriented. All her cranial nerves intact. She seemed to be able to move her upper extremities much against her lower extremities and in fact today, she has some weakness in her right upper extremity compared to the left, although there is no evidence of any cerebellar dysfunction. LABORATORY DATA: Showed a serum sodium of 145, potassium 3.8, chloride 106, bicarbonate 27, anion gap of 12, BUN 25, creatinine 0.8, estimated GFR was 70 mL per minute. Her glucose 117, calcium was 9.7. Total bilirubin, AST, ALT, alkaline phosphatase were normal. Total protein was 6.8, albumin was 3.2. White cell count was 7600, hemoglobin 15, hematocrit 45, MCV 91, and platelet count 266,000. ASSESSMENT AND PLAN: This is a 73-year-old female patient who was transferred back from [facility] where she has had an MRI, showed no evidence of any new compression fracture and she was not a candidate for augmentation treatment. She apparently has manifesting some more weakness in her right upper extremity. She is hallucinating and more confused according to her family. I did her lab work, which was basically unremarkable. Her oxygen saturation was 95%. She is tachycardic and we have arranged for her to have a 12-lead EKG. I will consult Dr. Pittman to evaluate and Dr. Maldonado to assist also with management. We did send urine for UA and for culture and sensitivity and we might have to treat her if it does show some evidence of urinary tract infection. Overall, the patient seems to be deteriorating and likely that she would end up in a long-term care facility. GILBERTO RENTERIA MD DR: MORENA/rhiannon JOB#: [id number] / [id number]
[2019-10-14 14:27] LABS: PLT ESTIMATE ADEQUATE (ADEQUATE)
[2019-10-14 14:45] VITALS: BP 115/78
--- NOTE | 2019-10-14 17:08 | EKG ---
[address] [address] Test Date: 2019-10-14 Test Time: 17:02:05 Pat Name: EVANS BUCK Department: Room: 111 A Gender: F Frame Changer: : 1945 Requested By: GILBERTO RENTERIA Order Number: [id number] Reading MD: Measurements Intervals [place] Rate: 115 P: 10 OH: 132 QRS: 28 QRSD: 84 T: -41 QT: 292 QTc: 406 Interpretive Statements SINUS TACHYCARDIA T ABNORMALITY IN ANTERIOR LEADS INFEROLATERAL LEADS ABNORMAL ECG RI6.02 No previous ECG available for comparison
[2019-10-14] MEDS ORDERED: PATCH REMOVAL. MC SCH (21:00)
--- NOTE | 2019-10-14 21:35 | PDOC ---
Exam Note: Omar Note: Please also refer to the separate dictated note~for this date of service dictated separately.~Patient seen individually. Discussed the patient with Nursing staff reviewed the chart.~Reviewed interim history and current functioning. Reviewed vital signs,~Labs/ Radiology~and current medications noted below. Continue current treatment with the changes noted in the dictated addendum note Assessment: Vital Signs/I&O: Vital Signs Date Time Temp Pulse Resp B/P (MAP) Pulse Ox O2 Delivery O2 Flow Rate FiO2 10/14/19 20:00 Room Air 10/14/19 14:45 98.0 124 115/78 (90) 94 10/14/19 05:26 20 I & O 10/13/19 10/13/19 10/14/19 15:00 23:00 07:00 Intake Total 180 ml Balance 180 ml Labs: Laboratory Tests Test 10/14/19 10:55 10/14/19 11:50 White Blood Count 7.6 x10^3/uL (4.0-11.0) Red Blood Count 5.02 x10^6/uL (3.50-5.40) Hemoglobin 15.0 g/dL (12.0-15.5) Hematocrit 45.6 % (36.0-47.0) Mean Corpuscular Volume 91 fL (79-100) Mean Corpuscular Hemoglobin 30 pg (25-35) Mean Corpuscular Hemoglobin Concent 33 g/dL (31-37) Red Cell Distribution Width 14.3 % (11.5-14.5) Platelet Count 366 x10^3/uL (140-400) Neutrophils (%) (Auto) 70 % (31-73) Lymphocytes (%) (Auto) 21 % (24-48) L Monocytes (%) (Auto) 8 % (0-9) Eosinophils (%) (Auto) 1 % (0-3) Basophils (%) (Auto) 1 % (0-3) Neutrophils # (Auto) 5.3 x10^3uL (1.8-7.7) Lymphocytes # (Auto) 1.6 x10^3/uL (1.0-4.8) Monocytes # (Auto) 0.6 x10^3/uL (0.0-1.1) Eosinophils # (Auto) 0.1 x10^3/uL (0.0-0.7) Basophils # (Auto) 0.1 x10^3/uL (0.0-0.2) Segmented Neutrophils % 55 % (35-66) Band Neutrophils % 4 % (0-9) Lymphocytes % 20 % (24-48) L Atypical Lymphocytes % (Manual) 7 % (0-0) H Monocytes % 7 % (0-10) Basophils % 2 % (0-3) Myelocytes % 5 % (0-0) H Platelet Estimate Adequate (ADEQUATE) Large Platelets Present Sodium Level 145 mmol/L (136-145) Potassium Level 3.8 mmol/L (3.5-5.1) Chloride Level 106 mmol/L (98-107) Carbon Dioxide Level 27 mmol/L (21-32) Anion Gap 12 (6-14) Blood Urea Nitrogen 25 mg/dL (7-20) H Creatinine 0.8 mg/dL (0.6-1.0) Estimated GFR (Cockcroft-Gault) 70.7 BUN/Creatinine Ratio 31 (6-20) H Glucose Level 117 mg/dL (70-99) H Calcium Level 9.7 mg/dL (8.5-10.1) Total Bilirubin 0.3 mg/dL (0.2-1.0) Aspartate Amino Transferase (AST) 17 U/L (15-37) Alanine Aminotransferase (ALT) 36 U/L (14-59) Alkaline Phosphatase 83 U/L (46-116) Total Protein 6.8 g/dL (6.4-8.2) Albumin 3.2 g/dL (3.4-5.0) L Albumin/Globulin Ratio 0.9 (1.0-1.7) L Urine Collection Type Unknown Urine Color Yellow Urine Clarity Hazy Urine pH 6.0 Urine Specific Jackson >=1.030 Urine Protein Neg (NEG-TRACE) Urine Glucose (UA) Neg mg/dL (NEG) Urine Ketones (Stick) Neg mg/dL (NEG) Urine Blood Trace (NEG) Urine Nitrite Neg (NEG) Urine Bilirubin Neg (NEG) Urine Urobilinogen Dipstick 0.2 mg/dL (0.2 mg/dL) Urine Leukocyte Esterase Neg (NEG) Urine RBC 3-5 /HPF (0-2) Urine WBC 1-4 /HPF (0-4) Urine Squamous Epithelial Cells Few /LPF Urine Amorphous Sediment Present /HPF Urine Bacteria 0 /HPF (0-FEW) Urine Mucus Mod /LPF Current Medications: Meds: Current Medications Medications (Trade) Dose Ordered Sig/Khushboo Route PRN Reason Start Time Stop Time Status Last Admin Dose Admin Calcium Carbonate/ Glycine (Oscal) 500 mg DAILY PO 10/14/19 09:00 10/14/19 08:52 Levothyroxine Sodium (Synthroid) 50 mcg DAILYAC PO 10/14/19 07:30 10/14/19 08:53 Prednisone (Prednisone) 10 mg DAILY PO 10/14/19 09:00 10/14/19 08:52 Raloxifene HCl (Evista) 60 mg DAILY PO 10/14/19 09:00 10/14/19 09:12 Vitamin D (Vitamin D3) 5,000 unit DAILY PO 10/14/19 09:00 10/14/19 08:51 Lisinopril (Prinivil) 20 mg DAILY PO 10/14/19 09:00 10/14/19 08:52 Fish Oil (Fish Oil) 1,000 mg DAILY PO 10/14/19 09:00 10/14/19 08:51 Cyclobenzaprine HCl (Flexeril) 10 mg TID PO 10/14/19 09:00 10/14/19 20:24 Enoxaparin Sodium (Lovenox 40mg Syringe) 40 mg DAILY SQ 10/14/19 09:00 10/14/19 08:54 Lidocaine (Lidoderm) 1 patch DAILY TP 10/14/19 09:00 10/14/19 08:55 Oxybutynin Chloride (Ditropan) 5 mg BID PO 10/14/19 09:00 10/14/19 20:24 Tramadol HCl (Ultram) 100 mg PRN Q6HRS PRN PO pain 10/14/19 07:15 10/14/19 15:53 Cephalexin HCl (Keflex) 500 mg Q8HRS PO 10/14/19 08:30 10/14/19 20:24 Miscellaneous (Lidoderm Patch Removal) 1 ea QHS 10/14/19 21:00 10/14/19 20:26 I have reviewed the current psychotropics carefully including drug interactions. Risk benefit ratio favors no change other than as noted in my dictated progress note. Diagnosis: Problems: (1) Fracture, lumbar vertebra, compression (2) Back pain (3) Nausea and vomiting (4) Weakness (5) Multiple sclerosis GREG HECTOR MD Oct 14, 2019 21:35
--- NOTE | 2019-10-15 00:44 | CONS ---
DATE OF CONSULTATION: 10/14/2019 NEURO CONSULTATION REFERRING PHYSICIAN: Dr. Foley. REASON FOR CONSULTATION: Chronic low back pain, weakness of the lower extremities and hallucination. HISTORY OF PRESENT ILLNESS: This is a 73-year-old right-handed female, who has had slowly progressive multiple sclerosis for the last 25 years, was readmitted to [facility] because she was found having hallucinations. Neuro consult was requested because the patient complains of exacerbation of weakness of the lower extremities. The patient was admitted to this institution about 2 weeks ago and she has had physical and occupational therapy. She was also transferred to [facility] for possible worsening of previous vertebral fracture at T11 and T2. The patient was readmitted to [facility] for further rehabilitation and occupational therapy after she was evaluated at [facility] for the old vertebral fracture and decided not to do any further treatment. Currently, the patient stated she feels better and she denies any new medical or neurological complaints. As a result of multiple sclerosis, the patient has neurogenic bladder. She denies headaches, chest pain, shortness of breath or palpitation, dysarthria or dysphagia. PAST MEDICAL HISTORY: Significant for multiple sclerosis diagnosed 15 years ago, hypertension, hypothyroidism, osteoporosis and osteoarthritis. PAST SURGICAL HISTORY: Significant for vertebroplasty long time ago for T11-T2 vertebral fracture. FAMILY HISTORY: Noncontributory. SOCIAL HISTORY: The patient is with 2 daughters. She denies smoking, alcohol drinking, or illicit drug use. CURRENT MEDICATIONS: Cetirizine, cephalexin, cyclobenzaprine, verapamil, lisinopril, Celebrex, tramadol, calcium, prednisone and raloxifene, levothyroxine, oxybutynin, and vitamin D. ALLERGIES: No known drug allergies. PHYSICAL EXAMINATION: GENERAL: Well-developed, well-nourished female, not in acute distress. VITAL SIGNS: Blood pressure 150/78, respiratory rate 20, pulse is 102, oxygen saturation is 94%, temperature 98. HEENT: Normocephalic, atraumatic, otherwise unremarkable. NECK: Supple. Negative for carotid bruit, lymphadenopathy or thyromegaly. LUNGS: Clear to A and P. CARDIOVASCULAR: Regular rate and rhythm, normal S1, S2. There is no S3, S4 or murmurs. ABDOMEN: Soft. Bowel sounds positive. EXTREMITIES: Positive for redness, swelling and tenderness over the left leg consistent with cellulitis. NEUROLOGIC: The patient is alert and oriented x 3. The speech is fluent. There is no language dysfunction. Memory, judgment, and abstracting thinking are normal. The patient denies hallucination or delusion. CRANIAL NERVES: Visual wall are full. The pupils are reactive to light and accommodation. The extraocular movements are intact. There is no nystagmus. There is no facial motor or sensory deficit. Hearing is intact bilaterally. The palate is elevated symmetrically. Sternocleidomastoid muscles are powerful bilaterally. The patient shrugs her shoulders symmetrically, protrudes her tongue in the midline without fasciculation or atrophy. MOTOR: No focal muscle bulk was seen. The tone is normal. The strength is 4/5 in the left lower extremity and 3/5 in the right lower extremity. The strength in the upper extremities 4/5 throughout. Sensory examination revealed diminished pinprick and light touch senses in patchy distributions in both lower extremities. Deep tendon reflexes were asymmetric and hypoactive without pathology responses. Gait not tested. LABORATORY DATA: CBC revealed white blood cells of 7.6 thousand, hemoglobin 15, hematocrit 45.6, platelet count 366,000. Chemistry revealed sodium of 145, potassium 3.8, chloride 106, CO2 of 27, BUN 25, creatinine 0.8, glucose is 117, and calcium is 9.7. Liver enzymes are normal. Urinalysis negative for urinary tract infections. IMPRESSION: 1. Multiple sclerosis -- in change. 2. Cellulitis, left lower extremity. 3. Multiple medical problems include chronic low back pain, old compression fracture over the vertebra at T11 and T12, required vertebroplasty, osteoarthritis, osteoporosis, urinary incontinence, and hypothyroidism. RECOMMENDATIONS: 1. Continue with current management initiated by Dr. Foley and treat the underlying cellulitis. 2. Resume physical therapy and occupational therapy as tolerated. M Reji ALBARRAN MD DR: ROYA/rhiannon JOB#: [id number] / [id number]
[2019-10-15] MEDS: traMADol 50 MG TABLET PO PRN (01:29)
[2019-10-15] MEDS ORDERED: LORazepam 0.5 MG TABLET PO PRN (05:15)
[2019-10-15] MEDS: CEPHALEXIN 250 MG CAPSULE PO SCH (05:28)
[2019-10-15] MEDS: LEVOTHYROXINE 50 MCG TABLET PO SCH (05:32)
[2019-10-15] MEDS: CHOLECALCIFEROL (VITAMIN D3) 1,000 UNIT TABLET PO SCH (09:48)
[2019-10-15 09:49] VITALS: BP 103/67
[2019-10-15] MEDS: OMEGA-3 FATTY ACIDS/FISH OIL 1,000 MG CAPSULE. PO SCH (09:49)
[2019-10-15] MEDS: predniSONE 10 MG TABLET PO SCH (09:49)
[2019-10-15] MEDS: CALCIUM CARBONATE 500 MG TABLET PO SCH (09:49)
[2019-10-15] MEDS: OXYBUTYNIN CHLORIDE 5 MG TABLET PO SCH (09:49)
[2019-10-15] MEDS: CELECOXIB 100 MG CAPSULE PO SCH (09:49)
[2019-10-15] MEDS: LISINOPRIL 20 MG TABLET PO SCH (09:50)
[2019-10-15] MEDS: CYCLOBENZAPRINE 10 MG TABLET. PO SCH (09:50)
[2019-10-15 09:53] VITALS: BP 117/77
[2019-10-15] MEDS: VERAPAMIL SR 120 MG TABLET.ER. PO SCH (09:53)
[2019-10-15] MEDS: RALOXIFENE 60 MG TABLET. PO SCH (09:53)
--- NOTE | 2019-10-15 10:56 | PN ---
DATE: 10/15/2019 SUBJECTIVE: The patient denies any new medical or neurological complaints; however, she still has intermittent hallucination. She had an episode this morning. Otherwise, she denies any headaches, visual disturbances, chest pain, shortness of breath or palpitation, dysarthria or dysphagia. OBJECTIVE: GENERAL: A well-developed, well-nourished female, not in acute distress. VITAL SIGNS: Blood pressure is 115/78, respiratory rate 18, pulse is 124, oxygen saturation 94% on room air. HEENT: Normocephalic, atraumatic, otherwise unremarkable. NECK: Supple. Negative for carotid bruit, lymphadenopathy or thyromegaly. LUNGS: Clear to A and P. CARDIOVASCULAR: Regular rate and rhythm, normal S1, S2. ABDOMEN: Soft. Bowel sounds positive. EXTREMITIES: Negative for cyanosis, clubbing or edema. NEUROLOGICAL EXAM: Mental Status: The patient is alert and oriented x 2. The speech is fluent. There is no language dysfunction. The patient had intermittent hallucinations. Otherwise, unremarkable. Cranial nerves are intact. Motor examination revealed no focal muscle bulk was seen. The strength was 3/5 in the right lower extremity and 4/5 in the left lower extremity, otherwise 5/5 in the upper extremities. Sensory examination revealed diminished pinprick and light touch senses in patchy distributions in both lower extremities. Deep tendon reflexes were asymmetric and hypoactive with absent Achilles responses. Gait not tested as the patient is wheelchair bound. IMPRESSION: 1. Long history of multiple sclerosis, complicated with severe weakness of the lower extremities and gait disturbance and neurogenic bladder. 2. Intermittent hallucinations and anxiety. 3. Multiple medical problems include chronic low back pain secondary to previous vertebral body fractures, compression fracture, osteoarthritis, osteoporosis, cellulitis, left lower extremity, and hypothyroidism. RECOMMENDATIONS: Continue with current management and rehabilitation. M Reji ALBARRAN MD DR: ROYA/rhiannon JOB#: [id number] / [id number]
--- NOTE | 2019-10-15 19:17 | CONS ---
DATE OF CONSULTATION: 10/14/2019 PSYCHIATRIC CONSULTATION NOTE This late entry 10/14/2019 covers elements not covered in my initial note. SUBJECTIVE: I met with the patient evening of 10/14/2019 and also met with the patient's daughter. Discussed with nursing staff, reviewed the chart. IDENTIFYING DATA: The patient is a 73-year-old female seen in bed [address], [address] [place] [address], for a psychiatric consult requested by Dr. Foley on account of new onset confusion starting 10/13/2019 within the context of her history of multiple sclerosis and to rule out any psychiatric disorder that may be contributing to this. CHIEF COMPLAINT: "Yes, I get a little forgetful." This is according to the patient. According to the daughter all this started right after she was started on the pain patch medication. She had no problems before that." HISTORY OF PRESENT ILLNESS: The patient has a long history of multiple sclerosis, followed outpatient by Dr. Pittman. She was admitted originally to this hospital at 09/27/2019 due to an exacerbation of her multiple sclerosis. She was seen by Dr. Pittman. No recommendation made for steroids and it was felt the patient would benefit from retirement care and rehabilitation. While there, she developed severe back pain. X-ray of her lumbar spine showed that she had what seemed to be new compression fracture T11-T12 and there was a possible progression of previously seen compression fracture of L1 [facility] showed that these changes were old and no further recommendations made, transferred back to the swing bed. She was noted to be somewhat confused, hallucinating at times at [place] but as noted above, the daughter is quite clear that this started only after the pain patch was initiated. Going through a list of medications, I am not able to discern which specific pain patch she was alluding to. PAST PSYCHIATRIC HISTORY: Noncontributory. MEDICAL HISTORY: History of multiple sclerosis for over 25 years; history of hypertension, hypothyroidism, osteoporosis, osteoarthritis. PAST SURGICAL HISTORY: Vertebroplasty x 2. ALLERGIES: Negative. FAMILY HISTORY: One sister has morbid obesity, treated with gastric bypass surgery. Brother has diarrhea, chronic. Father at 74 because of [place], complications of diabetes. Mother at 86 due to Marii's granulomatosis. SOCIAL HISTORY: She is , has 2 daughters. She is a nonsmoker, does not use alcohol. She worked at [employer]. CURRENT PSYCHOTROPICS: Negative. SOCIAL HISTORY: As noted above, she lives at home with her . MENTAL STATUS EXAMINATION: The patient was seen individually evening of 10/14/2019. She is seated in a wheelchair, oriented to herself and situation, talked about the visual and auditory misperceptions, but denied any current hallucinations, suicidal or homicidal ideation. Attention span short. Mood appears somewhat anxious, otherwise euthymic. Affect is mood congruent. Mild short-term memory deficits noted. 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 Rest as above. RECOMMENDATIONS: From a psychiatric standpoint since the family is quite clear about the correlation between her pain medications and mental status changes, I would suggest the offending medication could be discontinued to see how she does. If symptoms persist, we may have to reassess from a psychiatric standpoint, MRI head was not done as a repeat at [place] recently, but I will defer this to Dr. Pittman, Neurology, who is going to be seeing her for a consult as well. Dr. Foley, thank you for the opportunity to participate in your patient's care. We will follow with you. MAN Tonie HECTOR MD DR: ATIF/rhiannon JOB#: [id number] / [id number]
--- NOTE | 2019-10-15 21:53 | PDOC ---
Exam Note: Omar Note: Please also refer to the separate dictated note~for this date of service dictated separately.~Patient seen individually. Discussed the patient with Nursing staff reviewed the chart.~Reviewed interim history and current functioning. Reviewed vital signs,~Labs/ Radiology~and current medications noted below. Continue current treatment with the changes noted in the dictated addendum note Assessment: Vital Signs/I&O: Vital Signs Date Time Temp Pulse Resp B/P (MAP) Pulse Ox O2 Delivery O2 Flow Rate FiO2 10/15/19 09:53 104 117/77 10/15/19 09:49 97.8 93 Room Air 10/15/19 02:29 18 I & O 10/14/19 10/14/19 10/15/19 15:00 23:00 07:00 Intake Total 480 ml 560 ml 50 ml Balance 480 ml 560 ml 50 ml Current Medications: Meds: Current Medications Medications (Trade) Dose Ordered Sig/Khushboo Route PRN Reason Start Time Stop Time Status Last Admin Dose Admin Lorazepam (Ativan) 0.5 mg PRN Q6HRS PRN PO ANXIETY / AGITATION 10/15/19 05:15 10/15/19 09:55 DC 10/15/19 05:28 I have reviewed the current psychotropics carefully including drug interactions. Risk benefit ratio favors no change other than as noted in my dictated progress note. Diagnosis: Problems: (1) Psychotic disorder (2) Adjustment disorder with anxiety (3) Weakness (4) Multiple sclerosis (5) Fracture, lumbar vertebra, compression GREG HECTOR MD Oct 15, 2019 21:53
--- NOTE | 2019-10-16 22:43 | PN ---
DATE: 10/15/2019 PSYCHIATRIC PROGRESS NOTE This late entry 10/15/2019 covers elements not covered in my initial note. SUBJECTIVE: I met with the patient in the evening and with the patient's daughter and reviewed with nursing staff. Overall, the patient has been a little more confused during the day and according to the daughter earlier in the day, she was able to respond to her name and recognize family members, but when I saw her in the evening, she was more sedated, not able to answer to what her name was or recognize her daughter. The family has opted to transfer her to [facility] for further care. There is nothing psychiatric I could determine to account for the mental status changes and will defer this to Medicine and Neurology. She was sedated in the evening as I met with her, drifting in and out, closing her eyes. Attention span is short. IMPRESSION: Unchanged from initial note. PLAN: The patient is awaiting transition to [facility] per family. GREG HECTOR MD DR: ATIF/rhiannon JOB#: [id number] / [id number]
== END 2019-10-15 09:54 | disposition short-term general hospital (02) | DRG 552 ==
LOC: 1 SOUTH 19:27
PROVIDERS: ADMIT Internal Medicine; ATTEND Internal Medicine
DX: M54.9 Dorsalgia, unspecified (principal); L03.116 Cellulitis of left lower limb; M48.54XA Collapsed vertebra, not elsewhere classified, thoracic region, initial encounter for fracture; M48.56XA Collapsed vertebra, not elsewhere classified, lumbar region, initial encounter for fracture; E03.9 Hypothyroidism, unspecified; F29 Unspecified psychosis not due to a substance or known physiological condition; F43.22 Adjustment disorder with anxiety; G35 Multiple sclerosis; G89.29 Other chronic pain; I10 Essential (primary) hypertension; M47.9 Spondylosis, unspecified; M81.0 Age-related osteoporosis without current pathological fracture; N31.9 Neuromuscular dysfunction of bladder, unspecified; Z82.49 Family history of ischemic heart disease and other diseases of the circulatory system; Z83.3 Family history of diabetes mellitus; Z87.81 Personal history of (healed) traumatic fracture; M19.90 Unspecified osteoarthritis, unspecified site
CPT/HCPCS: 36415; 80053; 81001; 85007; 85025; 93005; J1650; J7512; 97530; 97535

== ENCOUNTER 2019-10-15 09:55 | Inpatient (IN) | payer MEDICARE, OTHER ==
[~2019-10-15] VITALS: Ht 160 cm; Wt 57.9 kg
[~2019-10-15 09:55] MED LIST changes: +CEPH500T PO; +CETI10TA16 PO; +CYCL-331 PO; +ENOX40DI SQ; +LACT1CAP21 PO; +LIDO700A21 TP; +OXYB5TAB10 PO; +SODI30SP NS; +TRAM-48 PO; +VERAPAMIL SR 120 MG TABLET.ER. PO SCH
--- NOTE | 2019-10-15 10:48 | NUR ---
Pt was admitted from [facility] to inpatient status d/t change in neurological status. Per report, pt was experiencing panic and feelings of falling while lying in bed throughout the night. Pt was hallucinating and calling out for help. Night RN got order for ativan and gave at 0530 and pt calmed down. Pt slept for a few hours this AM, but when working with PT around 0900 began having feelings of floating and falling while transferring to chair. Per therapy, pt had a second episode where entire left side became rigid. RN called Habib who gave verbal order for STAT head CT. VS at 0920 were 117/77; HR 105; T 98.0; RR 18; O2 95% on RA. Pt was placed back in bed by therapy, and denied feelings of falling, but stated she did remember the episode. At that time, trench digging machine operator were equal, face was symmetrical, pt was oriented to self, place, situation, and speech was clear. At 1015 pt began calling out for help and stated she felt she was falling again. Hospitalist alerted who gave no new orders and wanted to wait for CT scan results. 1028 22 gauge PIV placed by RN in R FA. 0.5 mg of PO ativan given as ordered. [address] Pt [address] unit for [address] scan.
[2019-10-15 10:57] VITALS: BP 117/77
[2019-10-15] MEDS ORDERED: SODIUM CHLORIDE 0.65% NASAL SPRAY 45ML BOTTLE. NS PRN (11:00)
[2019-10-15] MEDS ORDERED: traMADol 50 MG TABLET PO PRN (11:00)
[2019-10-15] MEDS ORDERED: CETIRIZINE HCL 10 MG TABLET PO PRN (11:00)
[2019-10-15] MEDS ORDERED: LORazepam 0.5 MG TABLET PO PRN (11:15)
--- NOTE | 2019-10-15 11:20 | RAD ---
PQRS Compliance Statement: One or more of the following individualized dose reduction techniques were utilized for this examination: 1. Automated exposure control 2. Adjustment of the mA and/or kV according to patient size 3. Use of iterative reconstruction technique CT HEAD WITHOUT CONTRAST History: Confusion, right hemiplegia. Comparison: CT head without contrast October 30, 2014. Technique: Axial images are obtained of the head from the skull base through the vertex without IV contrast. Findings: Image quality is degraded due to motion artifact. No mass-effect, midline shift, extra-axial fluid collection, hemorrhage, or obvious acute infarction is identified. Basilar cisterns are patent. The ventricles and sulci are prominent, consistent with age-related cerebral atrophy. There is moderate supratentorial white matter hypoattenuation. This is a nonspecific finding but is commonly due to chronic small vessel ischemic disease. Bone windows demonstrate no acute calvarial abnormality. The visualized paranasal sinuses are clear. Mastoid air cells are well aerated. IMPRESSION: 1. No acute intracranial abnormality. 2. Age-related cerebral atrophy and moderate supratentorial white matter changes probably due to chronic small vessel ischemic disease. Electronically signed by: German Dempsey MD (10/15/2019 11:17 AM) [id number]
[2019-10-15] MEDS ORDERED: CALCIUM CARBONATE 500 MG TAB.CHEW PO PRN (11:30)
[2019-10-15] MEDS ORDERED: CEPHALEXIN 250 MG CAPSULE PO SCH (14:00)
--- NOTE | 2019-10-15 15:18 | HP ---
ADMIT DATE: 10/15/2019 HISTORY OF PRESENT ILLNESS: The patient was transferred back from [facility] to swing bed on Monday and apparently the nursing staff noted that the patient has been yelling out help me, help me. She is shaking and reaching out for staffs stating that she is falling while she is lying on her back in the bed. She has not slept the whole night. The patient states that she cannot see during these episodes and she feels like she is falling. She states that it feels like a bad LSD trip. We did actually consult Dr. Pittman and Dr. Maldonado to see her. Dr. Pittman had seen her and the impression is that the patient has intermittent hallucination, anxiety. She has obviously a long history of multiple sclerosis, complicated with severe weakness of the lower extremities and gait disturbances as well as neurogenic bladder. He recommended doing a CT scan of the head and therefore, the patient was discharged to acute care. She was seen by Dr. Maldonado, but no changes were made to her medication. When I saw her this afternoon, she was definitely very confused, hallucinating, talking about things that did not happen. She did have a CT scan of the head, which basically showed that the patient has no acute intracranial abnormality. She has age-related cerebral atrophy and moderate supratentorial white matter changes, probably due to chronic small vessel ischemic disease. We will obviously continue the evaluation by the neurologist as well as psychiatrist. PAST MEDICAL HISTORY: Significant for longstanding multiple sclerosis for more than 25 years with functional paraplegia and neurogenic bladder. She is known to have hypertension, hypothyroidism, osteoporosis and osteoarthritis. She has multiple thoracolumbar vertebral compression fracture. PAST SURGICAL HISTORY: Significant for vertebroplasty x 2. ALLERGIES: She has no known drug allergies. FAMILY HISTORY: She has one sister who has morbid obesity, treated with gastric bypass surgery. One brother younger has diabetes. Her father at age of 74 because of myocardial infarction and complication of diabetes. Her mother at the age of 86 because of Marii's granulomatosis. SOCIAL HISTORY: She is , has 2 daughters. She never smoked, does not drink alcohol or use recreational drugs. She worked at [employer] for almost 38 years. MEDICATIONS: She is currently on following medications: She is on verapamil 240 mg daily, fish oil 1000 mg once a day, lisinopril 20 mg once a day, vitamin D 5000 international unit once a day, raloxifene 60 mg daily, prednisone 10 mg once a day, lidocaine 1 patch topically to her back. She has also Lovenox 40 mg subcutaneously daily, levothyroxine 50 mcg daily. She has lactobacillus rhamnosus 1 capsule twice a day, Celebrex 200 mg twice a day, oxybutynin chloride 5 mg twice a day, cephalexin 500 mg every 8 hourly, calcium carbonate 500 mg after meals, lorazepam 0.5 mg every 6 hours, tramadol 100 mg every 6 hours, sodium chloride with saline mist one spray to each nostril hourly, cetirizine 10 mg once a day. PHYSICAL EXAMINATION: GENERAL: When I saw her this afternoon, she was resting slightly propped up in bed, no apparent distress. There was no pallor, jaundice, cyanosis, or thyromegaly. No jugular venous distension. No limb edema. VITAL SIGNS: Her heart rate was 105, blood pressure was 117/77, temperature was 98, respiratory rate was 18 and oxygen saturation was 95% on room air. HEAD, EYES, EARS, NOSE AND THROAT: She is normocephalic, atraumatic. NECK: Supple. HEART: Showed normal first and second heart sounds. No gallop, rub or murmur. CHEST: Clear to auscultation. No crepitation or rhonchi. ABDOMEN: Distended, soft, nontender. NEUROLOGIC: She is definitely confused, hallucinating, attempting to touch things that are not there, talking about things that do not exist. However, her cranial nerves are grossly intact. She seemed to have right upper extremity weaker than the left upper extremity. She definitely has marked weakness of both lower extremities. LABORATORY DATA: As of yesterday showed that her white cell count was 7600, hemoglobin 15, hematocrit 45, MCV 91, and platelet count 266,000. Serum sodium was 145, potassium 3.8, chloride 106, bicarbonate 27, anion gap of 12, BUN 25, creatinine 0.8, estimated GFR was 70 mL per minute. Her glucose 117, calcium was 9.7. Total bilirubin, AST, ALT, alkaline phosphatase were normal. Total protein was 6.8, albumin 3.2. ASSESSMENT AND PLAN: In summary, this is a 73-year-old female patient with longstanding history of multiple sclerosis with neurogenic bladder and functional paraplegia, who was admitted to acute care because of altered mental status, hallucination, confusion and complaining that she is falling. We have consulted Dr. Pittman as well as Dr. Maldonado to assist with her management. We did start her on Ativan 0.5 mg every 6 hours. GILBERTO RENTERIA MD DR: MORENA/rhiannon JOB#: [id number] / [id number]
[2019-10-15 15:23] VITALS: BP 144/74
--- NOTE | 2019-10-15 18:35 | NUR ---
Pt to transfer to [facility] at [facility]. Report given to Criselda with transport team and DENISE Hare. RN requested PIV remain in place. EMS called and will send a truck [facility].
[2019-10-15 19:15] VITALS: BP 124/75
--- NOTE | 2019-10-15 19:21 | NUR ---
Discharge Note: [facility] [address] [place] [address] Discharge instructions and discharge home medications reviewed with Other facility and a copy given. All questions have been answered and understanding verbalized. The following instructions and handouts were given: MED RED and DC PACKET. Discontinued lines and drains: Peripheral IV remains in place. Patient discharged to [facility] with Ambulance Personnel via [facility]. All belongings sent with pt's daughter, including yulisa hernandez. Addendum: 10/15/19 at 1930 by DIDIER POMPA RN Notified [facility] transfer team of [facility] transport leaving with pt.
[2019-10-15] MEDS ORDERED: CELECOXIB 100 MG CAPSULE PO SCH (21:00)
[2019-10-15] MEDS ORDERED: LACTOBACILLUS RHAMNOSUS GG 1 CAPSULE. PO SCH (21:00)
[2019-10-15] MEDS ORDERED: OXYBUTYNIN CHLORIDE 5 MG TABLET PO SCH (21:00)
[2019-10-15] MEDS ORDERED: PATCH REMOVAL. MC SCH (21:00)
[2019-10-16] MEDS ORDERED: LEVOTHYROXINE 50 MCG TABLET PO SCH (07:30)
[2019-10-16] MEDS ORDERED: CHOLECALCIFEROL (VITAMIN D3) 1,000 UNIT TABLET PO SCH (09:00)
[2019-10-16] MEDS ORDERED: LIDOCAINE (700MG/PATCH) PATCH. TP SCH (09:00)
[2019-10-16] MEDS ORDERED: LISINOPRIL 20 MG TABLET PO SCH (09:00)
[2019-10-16] MEDS ORDERED: VERAPAMIL SR 120 MG TABLET.ER. PO SCH (09:00)
[2019-10-16] MEDS ORDERED: RALOXIFENE 60 MG TABLET. PO SCH (09:00)
[2019-10-16] MEDS ORDERED: predniSONE 10 MG TABLET PO SCH (09:00)
[2019-10-16] MEDS ORDERED: ENOXAPARIN 40 MG/0.4 ML SYRINGE. SQ SCH (09:00)
[2019-10-16] MEDS ORDERED: OMEGA-3 FATTY ACIDS/FISH OIL 1,000 MG CAPSULE. PO SCH (09:00)
== END 2019-10-15 19:21 | disposition short-term general hospital (02) | DRG 91 ==
LOC: 1 SOUTH 09:55 → UNDOADMIN 10:22 → 1 SOUTH 10:22
PROVIDERS: ADMIT Internal Medicine; ATTEND Internal Medicine
DX: G92 Toxic encephalopathy (principal); R53.2 Functional quadriplegia; R44.3 Hallucinations, unspecified; G35 Multiple sclerosis; E03.9 Hypothyroidism, unspecified; F41.9 Anxiety disorder, unspecified; I10 Essential (primary) hypertension; M81.0 Age-related osteoporosis without current pathological fracture; N31.9 Neuromuscular dysfunction of bladder, unspecified; Z82.49 Family history of ischemic heart disease and other diseases of the circulatory system; Z83.3 Family history of diabetes mellitus; M19.90 Unspecified osteoarthritis, unspecified site; W18.39XA Other fall on same level, initial encounter; Y93.89 Activity, other specified; Y92.89 Other specified places as the place of occurrence of the external cause; Y99.8 Other external cause status
CPT/HCPCS: 70450; J2060